=== PATIENT | male | born 1945 | race Caucasian/White ===

== ENCOUNTER → 2023-09-14 12:31 | Outpatient (REF) | payer MEDICARE, SELFPAY | LOC: MRI 3T 12:31 | PROVIDERS: ATTENDING PHYSICIAN Psychiatry & Neurology Neurology; FAMILY PHYSICIAN Family Medicine | DX: G31.84 Mild cognitive impairment of uncertain or unknown etiology (principal); R42 Dizziness and giddiness | CPT/HCPCS: 70553; A9575 ==

== ENCOUNTER 2023-10-24 10:42 | Inpatient (IN) | payer MEDICARE, SELFPAY ==
[2023-10-19] VITALS (7 sets, daily range): BP systolic 147–184; BP diastolic 84–129; BMI 24.6
[2023-10-19 21:29] LABS: % Basophils 0.2 % (0-2); % Eosinophils 0.2 % (0-6); % Immature Granulocytes 0.4 % (0-0.5); % Monocytes 2.7 % (1.7-9.3); % Neutrophils 86.5 % (42.2-75.2); Absolute Lymphocytes 0.5 10^3/uL (1.2-3.4); Absolute Monocytes 0.1 10^3/uL (0.1-0.6); Absolute Neutrophils 4.1 10^3/uL (1.4-6.5); Hematocrit 37.2 % (39.0-52.0); Hemoglobin 13.4 g/dL (13.0-18.0); Mean Corpuscular Hgb 32.3 pg (27.0-31.0); Mean Corpuscular Volume 89.6 fL (80.0-94.0); Mean Platelet Volume 9.7 fL (7.4-10.4); Nucleated Red Blood Cells % 0 % (-); Platelet Count 192 10^3/uL (130-400); Red Blood Cell Count 4.15 10^6/uL (4.70-6.10); Red Cell Dist. Width 12.5 % (11.5-14.5); White Blood Cell Count 4.8 10^3/uL (4.8-10.8)
[2023-10-19 21:46] LABS: ALT (SGPT) 18 U/L (0-50); AST (SGOT) 23 U/L (17-59); Albumin 4.2 g/dl (3.5-5.0); Alkaline Phosphatase 72 U/L (38-126); Blood Urea Nitrogen 22 mg/dl (9-20); Calcium 9.1 mg/dl (8.4-10.2); Carbon Dioxide 27 mmol/L (22-30); Chloride 99 mmol/L (98-107); Estimated Creatinine Clearance 64 ml/min; Glucose 137 mg/dl (70-99); Potassium 4.1 mmol/L (3.5-5.1); Sodium 133 mmol/L (135-145); Total Bilirubin 0.8 mg/dl (0.2-1.3); Total Protein 6.8 g/dl (6.3-8.2); eGFR > 60.00
--- NOTE | 2023-10-19 21:48 | ED.GENMED ---
History of Present Illness
General
Chief Complaint: Gait Dysfunction
Source: patient
Time Seen by Provider: 10/19/23 21:38
Travel History
Have you had any contact with someone who has COVID-19?: No
Do you have any symptoms of coronavirus? Fever > 100 degrees, chills, cough, shortness of breath, sore throat, loss of taste or smell, muscle aches, or headache?: No
History of Present Illness
History of Present Illness:
This patient is a 77-year-old male who says he was perfectly well until about 2 PM today when he started to feel a gradual onset of loud ringing in his right ear. This gradually got worse and he laid down. The ringing went away but then he started
to develop what he describes as vertigo also described as 'spinning, associated with nausea and then vomiting. This is much worse if he opens his eyes or is upright. When he tries to go upright he says that he feels 'faint'. He denies recent
recent trauma or falls, headache, neck pain, recent infection, sore throat, rhinorrhea, fever, chills, numbness, tingling, focal weakness, blurry or double vision, trouble swallowing, or other complaints. Patient has a history of vertigo in the
past.
Past History
Past History
ED Past Medical History: HTN and Other (TIA, vertigo); Negative IDDM
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
Social History
Tobacco: Non-smoker
Alcohol: None
Drug: None
Personal: Other
Living: alone
Employment: Other
Family History
Family History: Negative Early CAD
Phy Exam
Physical Exam
Physical Exam:
GENERAL: Alert , in no apparent distress occasional retching noted, obviously very nauseous
EYE: Patient declines eye exam at this time because opening his eyes makes him retch
NECK: Supple, no significant adenopathy.
ENT: o/p clr, mm dry, TMs clear bilaterally
CARDIAC: Regular rate and rhythm .
LUNGS: Clear breath sounds bilaterally, no acute respiratory distress, no wheezes/rales/rhonchi
ABDOMEN: Soft, without focal tenderness, no r/g
NEUROLOGICAL: Alert and oriented, speech clear, moves all extremities equally
SKIN: Warm and dry, skin intact.
MUSCULOSKELETAL: No edema, well perfused.
PSYCH: Normal and appropriate interaction.
Course
Orders/Labs/Results
Orders:
Orders
10/19/23 21:22
CMP [Comprehensive Metabolic Panel] Urgent
Complete Blood Count/With Diff Urgent
10/19/23 21:47
Metoclopramide [Reglan] 10 mg IV NOW STA
10/19/23 21:51
ECG [Electrocardiogram (*1)] Stat
Reason for Study: Vertigo / Dizzy
CT Head W/o Iv Contrast Stat
Comment:
Reason For Exam: dizzy
EKG- Treatment ONCE
10/19/23 22:04
Troponin I Urgent
10/20/23 00:07
Lorazepam [Ativan] 1 mg IV NOW STA
10/20/23 02:36
Admit/Transfer Patient As Directed
Co-Sign Provider:
Level of Care: Observation services
Assign to:: Telemetry
Physician / Group: Pamela
Diagnosis: Vertigo
Reason for Telemetry: CVA/TIA
Date to Stop Telemetry: 10/23/23
Time to Stop Telemetry: 11:00
10/20/23 02:37
Code Status As Directed
Resuscitation Status: Full Code
10/20/23 04:50
0.9% Sodium Chloride 1000 ml [Nss] 1,000 ml IV 80 mls/hr
Acetaminophen [Tylenol] 650 mg PO Q4HPRN PRN
Diazepam [Valium] 5 mg PO TIDPRN PRN
Meclizine [Antivert] 12.5 mg PO Q8HPRN PRN
10/20/23 04:50
Activity As Directed
Activity Level: Ambulate
With Assistance
Bladder Scan As Directed
Follow Bladder Retention/Intermittent Cath Algorithm?: Yes
PRN if no void in __ hours: 6
Frequency: Per Retention Algorithm
If Bladder Scan Result >: 400
then:: Straight cath
EKG with chest pain [ECG as needed] As Directed
ECG as needed for:: Chest Pain
I/O [Intake/ Output] As Directed
Frequency: Per unit guidelines
Neurological Checks As Directed
Frequency: q4h
Orthostatic Vital Signs As Directed
Orthostatic VS Frequency: BID
Pneumatic Compression Sleeves As Directed
Type: Knee high
Straight Cath As Directed
Frequency: Per Retention Algorithm
Additional Instructions: straight cath as needed per acute urinary retention algorithm for 24 hrs
Additional Instructions: for bladder scan greater than 400 mL
Vital Signs As Directed
Frequency: Per unit guidelines
Oxygen Therapy [O2 Therapy] [RESP] Routine
Titrate/Wean O2 to maintain O2 sat greater than (%): 94
Ot Eval And Treat Routine
PT Consult [Pt Eval And Treat] Routine
Activity Level: Ambulate
With Assistance
DX Deep Vein Thrombosis Video Routine
10/20/23 05:00
Flush (0.9% Sodium Chloride) [Flush (Nss)] See Dose Instructions IV PER PROTOCOL
10/20/23 05:17
Diazepam [Valium] 5 mg PO TIDPRN PRN
10/20/23 05:37
Basic Metabolic Panel IN AM
Complete Blood Count/No Diff IN AM
10/20/23 06:00
EKG [Electrocardiogram (*1)] IN AM
Reason for Study: Chest Pain
Regular
At Your Request: Full Participation
Does patient need a safe tray?: No
10/20/23 08:00
Clopidogrel Bisulfate [Plavix] 75 mg PO DAILY
Finasteride [Proscar] 5 mg PO DAILY
Tamsulosin [Flomax] 0.4 mg PO DAILY
10/20/23 09:00
Ot Screening Request from [facility] Routine
Pt Screening Request from [facility] Routine
10/20/23 16:00
Diazepam [Valium] 5 mg PO TID
10/20/23 21:42
Meclizine [Antivert] 12.5 mg PO Q8HPRN
10/20/23 22:00
Atorvastatin [Lipitor] 40 mg PO HS
Quetiapine Fumarate [Seroquel] 12.5 mg PO HS
10/21/23 13:18
Diazepam [Valium] 5 mg PO TID PRN
10/21/23 19:44
Ondansetron Injectable [Zofran] 4 mg IV NOW STA
10/22/23 10:46
ENT CONSULT Routine
Consulting Provider: Caryl Saldivar
Was physician already notified: Yes
Reason for Consult: Vertigo
MRI Brain [MR Brain Without Contrast] Routine
Comment:
Reason For Exam: persistent nystagmus
Recent pill cam endoscopy?: No
10/22/23 11:00
Sertraline HCl [Zoloft] 25 mg PO DAILY
10/22/23 13:51
COVID-19 Antigen Urgent
Source: Nasal Swab
10/22/23 19:00
0.9% Sodium Chloride 500 ml [Nss] 500 ml IV 500 mls/hr
10/23/23
Telemetry Continue As Directed
Date to Stop Telemetry: 10/24/23
Time to Stop Telemetry: 11:00
DX DVT Prevention Inpt Video Routine
10/23/23 08:00
Prednisone [Deltasone] 20 mg PO DAILY
10/23/23 11:00
DC Protocol for Telemetry ONCE
10/24/23 11:00
DC Protocol for Telemetry ONCE
Abnormal Lab Results
10/19/23 10/20/23 10/22/23
21:22 05:37 17:41
RBC 4.15 L 10^6/uL 4.02 L 10^6/uL
(4.70-6.10) (4.70-6.10)
Hgb 12.8 L g/dL
(13.0-18.0)
Hct 37.2 L % 36.8 L %
(39.0-52.0) (39.0-52.0)
MCH 32.3 H pg 31.8 H pg
(27.0-31.0) (27.0-31.0)
Absolute Lymphs (auto) 0.5 L 10^3/uL
(1.2-3.4)
Neutrophils % 86.5 H %
(42.2-75.2)
Lymphocytes % 10.0 L %
(20.5-51.1)
Sodium 133 L mmol/L 134 L mmol/L
(135-145) (135-145)
BUN 22 H mg/dl
(9-20)
Glucose 137 H mg/dl 115 H mg/dl
(70-99) (70-99)
POC Glucose 126 H mg/dl
(70-99)
10/20/23 05:37
10/20/23 05:37
Vital Signs
Initial and Last Documented VS:
Initial Vital Signs
Temp Pulse Resp BP Pulse Ox
98.7 F 96 18 167/87 98
10/19/23 20:24 10/19/23 20:24 10/19/23 20:24 10/19/23 20:24 10/19/23 20:24
Last Documented Vital Signs
Temp Pulse Resp BP Pulse Ox
98 F 79 18 147/67 95
10/27/23 11:25 10/27/23 11:25 10/27/23 11:25 10/27/23 11:25 10/27/23 11:25
*Critical Care Note
Total Time (30-74mins, 75-104mins- exclusive of procedures): Not Applicable
Update Note
Update Note:
Patient presents to the Emergency Department with ___dizziness
Number and Complexity of Problems Addressed at the Encounter
� Chronic conditions affecting care:
� Acute Exacerbation and/or Progression of Chronic Illness:
� Differential Diagnosis includes: But not limited to central vertigo, peripheral vertigo such as BPPV, acoustic neuroma, etc.
Amount and/or Complexity of Data to be Reviewed and Analyzed
� I performed an independent evaluation of and my interpretation is:
EKG:read by me, nsr, no acute ischemia
CT:vision report nad, chronic small vessel ischemic dz.
Xrays:
Laboratory Studies:generally unremarkable
Other:
� Review of other/old records reveals: hx of prior cva and admission for such
� Clinical information was obtained by an independent historian:
� Prescriptions/Medications Considered but not given:
� Further testing considered but not performed:
Risk of Complications and/or Morbidity or Mortality of Patient Management
� Social determinants of health affecting care:
� Discussion with other providers (PCP, Hospitalists, Consultants, etc):
� Escalation of care including admission/observation vs risk of discharge considered: 204 am Multiple reassessments here, pt finally able ot open eyes, no nystagmus appreciated. Still very dizzy but improved. Not able to
stand/walk due to sxs. Given risk factors and consistent sxs, will keep overnight. TT to Dr Carvajal.
ED Attending Note
-
Portions of this chart may have been created with voice recognition software.� Occasional wrong word or��sound alike� substitutions may have occurred due to the inherent limitations of voice recognition software.
Discharge Plan
Departure
Patient Disposition: Admit
Date of Disposition: 10/20/23
Time of Disposition: 02:09
Admit to: Telemetry
Admit to doctor: pamela
Presentation/result/management discussed w/ accepting MD/DO: Hospitalist
Discharge Problem:
Vertigo
Interventions
Interventions:
*Risk Screen - Suicide Last Done: 10/19/23 20:24
*General Assessment Last Done: 10/19/23 20:24
*Neglect/Abuse Screening Last Done: 10/19/23 20:24
ED- Fall Risk Assessment Last Done: 10/19/23 21:27
*ED COVID-19 Vaccine History Last Done: 10/19/23 21:27
*Nursing Disposition Last Done: 10/20/23 04:25
ED- Neurological Assessment Last Done: 10/19/23 21:27
ED-Musculoskeletal Assessment Last Done: 10/19/23 21:27
ED Swallowing Screen Last Done: 10/19/23 21:29
Discharge Date and Time
Discharge Date/Time: 10/20/23 04:26
[2023-10-19] MEDS: REGLAN 10 MG IV (22:07)
[2023-10-19 22:34] LABS: Troponin I < 0.012 ng/ml
[2023-10-20] VITALS (17 sets, daily range): BP systolic 117–165; BP diastolic 64–97; PULSE 82–94; O2SAT 97; BMI 22.7
[2023-10-20] MEDS: ATIVAN 1 MG IV (00:37)
--- NOTE | 2023-10-20 02:40 | HPS.HSE ---
Family Physician
-
Family Physician: Rufus Brown
Chief Complaint
-
Dizziness
History of Present Illness
Patient is a 77y M with PMH significant for anxiety, BPH and mild dementia who presents to ED complaining of dizziness. Patient states that he has been 'dealing with vertigo for the past 18 months'. Today he had a ringing in his ears (both) and
then developed dizziness / room spinning / nausea and vomiting. He presented to the ED for further evaluation. Patient received Reglan and Ativan in the ED with mild improvement in his symptoms. Despite his recent issues with vertigo, he feels
that today's symptoms are somewhat different.
He denies any recent illness, falls, trauma, head injury, etc.
Medical History
Past Medical History
Past Medical History: Reports Other
Additional Past Medical History:
BPPV / Vertigo
Hypertension
Anxiety / Depression
Mild Cognitive Impairment
BPH
Migraine Headaches
? History of TIA / BRAOs
Past Surgical History: Reports Other
Additional Past Surgical History:
Knee Arthroscopy
Cleft Palate Repair
Social History
Tobacco: Non-smoker
Alcohol: None
Drug: None
Family History
Family History: Not pertinent
Allergies / Home Medications
Allergies reflects when Allergies were last updated in [facility].
Home Medications with original date entered in [facility]
Allergy/Medication List:
Allergies
Allergy/AdvReac Type Severity Reaction Status Date / Time
No Known Allergies Allergy Verified 10/19/23 20:27
Home Medications
ascorbic acid (vitamin C) 500 mg tablet (Vitamin C) 500 mg PO DAILY 10/12/13
bethanechol chloride 5 mg tablet 5 mg PO BID 10/12/13
clonazepam 0.5 mg tablet 0.25 mg PO HS 10/12/13
clopidogrel 75 mg tablet 75 mg PO DAILY 10/12/13
finasteride 5 mg tablet 5 mg PO DAILY 10/12/13
multivitamin (One Daily Multivitamin tablet) 1 ea PO DAILY 10/12/13
tamsulosin 0.4 mg capsule 0.4 mg PO DAILY 10/12/13
aspirin 325 mg tablet 325 mg PO DAILY 04/28/19
atorvastatin 40 mg tablet (Lipitor) 40 mg PO HS #30 tabs 04/28/19
quetiapine 25 mg tablet 12.5 mg (1/2 x 25 mg) PO HS 04/28/19
ondansetron 4 mg disintegrating tablet 4 mg PO TIDPRN PRN nausea/vomiting #20 tabs 08/18/22
Review of Systems
-
History Source: Patient
A 12 point ROS was completed and negative except as noted: Yes
Constitutional: Reports Fatigue; Denies Fever or Chills
EENT: Denies Sore Throat
Respiratory: Denies Cough or Trouble Breathing
Cardiac: Denies Chest Pain or Palpitations
Abdomen/GI: Reports Nausea and Vomiting; Denies Abdominal Pain, Diarrhea or Constipated
: Denies Dysuria or Frequency
Musculoskeletal: Denies Joint Pain or Edema
Neurological: Reports Dizzy and Headache; Denies Weakness or Numbness
Psych: Denies Depression or Anxiety
Physical Exam
Vital Signs
Vital Signs
Temp Pulse Resp BP Pulse Ox
98.7 F 88 16 117/73 93
10/19/23 20:24 10/20/23 01:30 10/20/23 01:30 10/20/23 01:30 10/20/23 01:30
Physical Exam
General: Other (77y M in mild distress due to dizziness / nausea.)
HEENT: Moist mucous membranes, PERRLA and Other (Pos horizontal nystagmus on exam.)
Respiratory: Clear; No Wheezes, Rales or Rhonchi
Cardiac: S1/S2, Regular Rhythm and Murmur (II/ JUSTIN)
GI: Soft, Non Tender, Non Distended and Normal Bowel Sounds
Musculoskeletal: No Clubbing, No Cyanosis and No Edema
Neuro: AO x 3 and Nonfocal/grossly intact
Laboratory Results
-
10/19/23 21:22
10/19/23 21:22
Laboratory Results
Total Bilirubin 0.8 mg/dl (0.2-1.3) 10/19/23 21:22
AST 23 U/L (17-59) 10/19/23 21:22
ALT 18 U/L (0-50) 10/19/23 21:22
Alkaline Phosphatase 72 U/L (38-126) 10/19/23 21:22
Troponin I < 0.012 ng/ml 10/19/23 22:04
Impression/Plan
-
A/P: Patient is a 77y M with PMH significant for migraines, HTN and vertigo who presents to ED complaining of dizziness and nausea.
Vertigo
- Observe overnight for further evaluation and treatment.
- Positive nystagmus on exam consistent with vertigo diagnosis.
- PT / OT evaluations in the AM.
- Will use vertigo medications (meclizine +/- Valium) as needed for any new or worsening symptoms in the interim.
- Follow for clinical improvement.
- CT head was unremarkable in the ED and note that patient had an MRI of the brain done last month - also unremarkable.
- No need for further imaging at this time.
Anxiety / Depression
- Stable. Continue current med regimen.
BPH
- Stable. Continue Flomax / Proscar.
- Bladder scan protocol.
Questionable TIA History
- Patient reports prior history of 'eye TIAs' in the past.
- Outpatient records indicate no evidence / report of this in his Ophtho documentation.
- Monitor for any new / focal findings.
- Recent unremarkable ROAD [employer] imaging has been completed as noted above.
DVT Prophylaxis: SCDs
Code Status: Full
--- NOTE | 2023-10-20 05:30 | PTCARENOTE ---
Patient admitted to room 405-1, pulled over from the stretcher to the bed. Patient oriented x3. His NIH is a '0'. Complaining of dizziness, medicated with antivert as ordered prn dizziness. Patient states he has not voided in 12 hours , he
attempted to go in the urinal twice. He was bladder scanned for 411cc, the straight cathed for 300cc. Patient instructed to ring for assistance prior to geting out of bed, he verbalized understanding. Call pelayo in reach.
[2023-10-20] MEDS: NSS 1000 IV ×2 (05:35→18:42)
[2023-10-20] MEDS: ANTIVERT 12.5 MG PO ×2 (05:37→13:42)
[2023-10-20 06:52] LABS: Hematocrit 36.8 % (39.0-52.0); Hemoglobin 12.8 g/dL (13.0-18.0); Mean Corp Hgb Conc. 34.8 g/dL (33.0-37.0); Mean Corpuscular Hgb 31.8 pg (27.0-31.0); Mean Corpuscular Volume 91.5 fL (80.0-94.0); Mean Platelet Volume 9.8 fL (7.4-10.4); Platelet Count 199 10^3/uL (130-400); Red Blood Cell Count 4.02 10^6/uL (4.70-6.10); Red Cell Dist. Width 12.4 % (11.5-14.5); White Blood Cell Count 6.4 10^3/uL (4.8-10.8)
[2023-10-20 07:21] LABS: Blood Urea Nitrogen 19 mg/dl (9-20); Calcium 8.9 mg/dl (8.4-10.2); Carbon Dioxide 28 mmol/L (22-30); Chloride 99 mmol/L (98-107); Estimated Creatinine Clearance 73 ml/min; Glucose 115 mg/dl (70-99); Sodium 134 mmol/L (135-145); eGFR > 60.00
[2023-10-20] MEDS: FLOMAX 0.400000000000000022 MG PO (08:29)
[2023-10-20] MEDS: PLAVIX 75 MG PO (08:29)
[2023-10-20] MEDS: PROSCAR 5 MG PO (08:29)
[2023-10-20] MEDS: VALIUM 5 MG PO ×3 (08:37→20:58)
--- NOTE | 2023-10-20 15:00 | W.PN.UPDATE ---
Update Note
Progress Note Update
Seen by Dr. Carvajal this morning. Patient with chronic vertigo presented with worsening of vertigo symptoms. He was noted to be nonfocal neurologically and a CT head was negative. He had recent MRI of the brain apparently for the same reason and
apparently was negative. Admit as an observation for symptomatic treatment. Patient still remains very symptomatic. He has to keep his eyes closed. Minimal movement of his head or body precipitates vertigo symptoms and nausea.
CW symptomatic treatments. I will keep Antivert and Valium scheduled due to his severe nature of symptoms. He was advised that it would bring on sleepiness and advised to take help with ambulation or transfers out of bed.
[2023-10-20] MEDS: SEROQUEL 12.5 MG PO (20:56)
[2023-10-20] MEDS: LIPITOR 40 MG PO (20:57)
[2023-10-21] VITALS (8 sets, daily range): BP systolic 126–159; BP diastolic 56–96; PULSE 66–106
[2023-10-21] MEDS: NSS 1000 IV (05:01)
--- NOTE | 2023-10-21 06:23 | PTCARENOTE ---
Patient bladder scanned for >400, SCIENTIFIC [employer]EARCH ASSOCIATE aware that this would be 4th straight cath. New order obtained for placement of lobo catheter, patient agreeable with lobo placement.
[2023-10-21] MEDS: FLOMAX 0.400000000000000022 MG PO (08:46)
[2023-10-21] MEDS: PLAVIX 75 MG PO (08:46)
[2023-10-21] MEDS: PROSCAR 5 MG PO (08:46)
[2023-10-21] MEDS: VALIUM 5 MG PO (08:46)
--- NOTE | 2023-10-21 13:19 | W.PN.HOSP.TC ---
Today's Communication/Plan
-
Continue with Antivert. Valium as needed.
Continue PT treatments
DC planning
Assessment / Plan
Assessment / Plan
A/P: Patient is a 77y M with PMH significant for migraines, HTN and vertigo who presents to ED complaining of vertigo and nausea
Vertigo
- Positive nystagmus on exam on adx consistent with vertigo diagnosis.
- PT/OT evaluations ongoing
- improved vertigo with jordyn antivert and Valium medications . Will make Valium as needed now and continue with antivert scheduled.
- CT head was unremarkable in the ED and note that patient had an MRI of the brain done last month - also unremarkable.
- No need for further imaging at this time.
Anxiety / Depression
- Stable. Continue current med regimen.
BPH
- Stable. Continue Flomax / Proscar.
- Bladder scan protocol.
DVT Prophylaxis: SCDs
Code Status: Full
Anticipated Discharge: Within 24 hours
Subjective/Interval History
-
Date of Service: October 21, 2023
Patient is feeling improved with his vertigo. In fact was able to walk better with the physical therapy yesterday.
Tolerating diet.
Objective Data
-
Vital Signs:
Vital Signs
Temp Pulse Resp BP Pulse Ox
98 F 79 17 143/56 98
10/21/23 11:55 10/21/23 11:55 10/21/23 11:55 10/21/23 11:55 10/21/23 11:55
I&O
10/20/23 10/21/23 10/22/23
06:59 06:59 06:59
Intake Total 1010 / 1010
Output Total 300 / 300 1250 / 1250
Balance -300 / -300 -240 / -240
Review of Systems
-
Respiratory: Denies Trouble Breathing
Cardiac: Denies Chest Pain
Neuro: Denies Headache
Physical Exam
-
General: No Apparent Distress
HEENT: Moist Mucous Membranes
Respiratory: Clear to Auscultation
Cardiac: Regular Rhythm and S1/S2
GI: Soft
Neuro: AO x 3, No Motor Deficits and Other (nystagmus in rt eye looking to left ;EOMI ); Negative Tremors
--- NOTE | 2023-10-21 15:37 | CM ---
Patient with Dx vertigo. Room air. PT & OT recommend outpatient PT & OT.
Met with patient who resides alone in a 2 story house.
The patient has been independent in ADLs and ambulation.
He was active and drives.
The patient has no DME, prior VN or SNF.
PCP - Rufus Brown
Ph[facility]acy - [facility]
The patient will need a script for outpatient PT & OT.
Plan home with script for outpatient PT/OT.
[2023-10-21] MEDS: TYLENOL 650 MG PO (15:57)
[2023-10-21] MEDS: ZOFRAN 4 MG IV (19:55)
[2023-10-21] MEDS: SEROQUEL 12.5 MG PO (21:19)
[2023-10-21] MEDS: LIPITOR 40 MG PO (21:20)
[2023-10-21] MEDS: ANTIVERT 12.5 MG PO (21:22)
[2023-10-22] MEDS: TYLENOL 650 MG PO ×2 (02:32→09:11)
[2023-10-22 03:28] VITALS: BP 145/83
[2023-10-22 07:55] VITALS: BP 135/73; BP 135/83; PULSE 74; PULSE 76
[2023-10-22] MEDS: FLOMAX 0.400000000000000022 MG PO (09:11)
[2023-10-22] MEDS: PLAVIX 75 MG PO (09:11)
[2023-10-22] MEDS: ANTIVERT 12.5 MG PO (09:11)
[2023-10-22] MEDS: PROSCAR 5 MG PO (09:11)
--- NOTE | 2023-10-22 09:45 | PTCARENOTE ---
pt aoox3. states dizziness is the same as yesterday. Antivert given as ordered states back of head headache. tylenol given as ordered. pt states he feels better if only looking out one eye.
--- NOTE | 2023-10-22 10:50 | W.PN.HOSP.TC ---
Today's Communication/Plan
-
CW PT tx
MRI brain
ENT eval
Assessment / Plan
Assessment / Plan
A/P: Patient is a 77y M with PMH significant for migraines, HTN and vertigo who presents to ED complaining of vertigo and nausea
Acute Vertigo preceded by acute onset of tinnitus in left ear
Hx of intermittent Vertigo
- Positive nystagmus on exam while looking to left .
- Remains symptomatic needing to close his eyes to help with vertigo.
- No motor deficit , no tremor
- Improved GI symptoms and resolved tinnitus
- CT head was unremarkable in the ED and note that patient had an MRI of the brain done( for CVA eval) last month - also unremarkable.
- In view of persistent symptomsand hx of CVA in past will obtain MRI brain
- ENT to eval as well
Anxiety / Depression
- Stable. Continue current med regimen.
BPH
- Stable. Continue Flomax / Proscar.
- Bladder scan protocol.
Hx of CVA
cw Plavix
[facility] chart reviewed ;last neuro OP visit noted
Total time spent on today's encounter was 52 minutes which included time spent in counseling the patient regarding diagnosis and treatment plan as listed above, goals of care, and symptom management. Case was discussed with nursing staff,
specialists, . All labs and imaging personally reviewed by me. Remainder the time spent in detailed review of previous records, lab data, imaging, and other medical provider documentation.
DVT Prophylaxis: SCDs
Code Status: Full
Anticipated Discharge: 24 - 48 hours
Subjective/Interval History
-
Date of Service: October 22, 2023
Persistent vertigo when he opens his eyes. He is better with closing 1 eye. Still symptomatic when he tries to get up. No diplopia.
The left ear tinnitus has subsided.
Nausea and vomiting is subsided.
No headache.
Objective Data
-
Vital Signs:
Vital Signs
Temp Pulse Resp BP Pulse Ox
98.2 F 74 18 135/83 94
10/22/23 07:55 10/22/23 07:55 10/22/23 07:55 10/22/23 07:55 10/22/23 07:55
I&O
10/21/23 10/22/23 10/23/23
06:59 06:59 06:59
Intake Total 1010 / 1010 600 / 600
Output Total 1250 / 1250 2675 / 2675
Balance -240 / -240 -2074 / -2074
Review of Systems
-
Constitutional: Denies Fever
EENT: Denies Sore Throat
Respiratory: Denies Trouble Breathing
Cardiac: Denies Chest Pain
Abdomen/GI: Denies Abdominal Pain
Neuro: Denies Headache or Weakness
Physical Exam
-
General: No Apparent Distress
HEENT: Moist Mucous Membranes
Respiratory: Clear to Auscultation
Cardiac: Regular Rhythm and S1/S2
Neuro: AO x 3, No Motor Deficits and Other (nystagmus looking to left ); Negative Tremors, Slurred Speech or Facial Droop
Psych: Calm
[2023-10-22] MEDS: ZOLOFT 25 MG PO (11:14)
[2023-10-22 11:55] VITALS: BP 140/79
[2023-10-22 14:13] LABS: COVID-19 Antigen Negative (Negative)
[2023-10-22 15:55] VITALS: BP 160/90
--- NOTE | 2023-10-22 17:29 | CM ---
Spoke with patient he eye sight is not good.
Pt requested Home [facility]N [facility] at or.
[facility] liaison notified of Referral .
PLAN Home with [facility] if accepted
[2023-10-22 17:46] LABS: Glucose - Point of Care 126 mg/dl (70-99)
--- NOTE | 2023-10-22 18:11 | W.PN.ENT ---
Today's Communication
-
Start prednisone taper, f/u w ENT after d/c, continue vestibular PT. Full c/s to follow.
Impression / Plan
-
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 I recommend starting steroids and limiting the meclizine and benzodiazepine d/t the memory issues. Pls
have him continue vestibular PT. May need neuro follow up for the memory loss. He will need to f/u in our office once discharged.
Subjective Data
-
The patient was seen and examined. He is disoriented and cannot recall when or why he came to the hospital. He does not know the day/date. He knows the other doctors in my practice. He reports that he is no longer dizzy and his ringing has resolved.
I denies any change in hearing. He has been followed for a long time for vertigo diagnosed as BPPV.
Objective Data
-
Vital Signs
Temp Pulse Resp BP Pulse Ox
98.3 F 76 16 160/90 96
10/22/23 15:55 10/22/23 15:55 10/22/23 15:55 10/22/23 15:55 10/22/23 15:55
Intake & Output
10/21/23 10/22/23 10/23/23
06:59 06:59 06:59
Intake:
Oral fluids 120 / 120 600 / 600
IV fluids (Total) 890 / 890
Output:
Urine, [place] 2675 / 2675
Urine, Voided 475 / 475
Straight cath output 775 / 775
Lab Results
10/20/23 05:37
10/20/23 05:37
Calcium 8.9 mg/dl (8.4-10.2) 10/20/23 05:37
Total Bilirubin 0.8 mg/dl (0.2-1.3) 10/19/23 21:22
AST 23 U/L (17-59) 10/19/23 21:22
ALT 18 U/L (0-50) 10/19/23 21:22
Alkaline Phosphatase 72 U/L (38-126) 10/19/23 21:22
Physical Exam
-
NAD, Alert but only oriented to person
HEENT: B/L EACs are clear, no effusions or erythema. Hearing grossly intact
Nasal and oral exams WNL
Eyes: Non-fatiguing nystagmus when looking left.
Data Reviewed
-
Radiology Results: Report Reviewed and Image Reviewed
--- NOTE | 2023-10-22 18:42 | RR ---
A Rapid Response was called on this patient, please see Rapid Response form.
--- NOTE | 2023-10-22 18:43 | PTCARENOTE ---
pt returned from mri and was placed on commode. pt rang call pelayo to when done and then found unresponsive diaphoretic sinus tach on monitor. rapid response called. pt woke up shortly after and placed in bed. DR. Barber up to see pt. ivf
ordered. pt now with short term memory loss can not remember why he is here but remembers staff.
--- NOTE | 2023-10-22 19:18 | W.PN.UPDATE ---
Update Note
Progress Note Update
Called to see patient for syncopal event on the bedside commode
Patient was trying to have a bowel movement and his nurse found him laid back on the commode unresponsive, diaphoretic with sinus tachycardia on the monitor of heart rate in the 120s
He was placed back in bed but patient is having short-term memory issues about why he was here and what was happening which have been slowly returning to him
I suspect this is due to vasovagal response with poor perfusion as blood pressure was systolic 114 but he normally has been running here 160s systolic--he was given 500 mL of normal saline bolus
GENERAL: well developed, well nourished, male in no apparent distress
HEENT: NC/AT no carotid bruits noted
HEART: regular rate and rhythm, +S1, +S2--tachycardic
LUNGS : clear to auscultation bilaterally
ABDOM: soft, nontender, nondistended, + bowel sounds
EXT: no cyanosis, clubbing, or edema
NEUROLOGIC: grossly intact
Patient slowly improving--finish normal saline bolus--follow cognition through the evening
[2023-10-22] MEDS: NSS 500 IV (19:22)
[2023-10-22 19:55] VITALS: BP 147/85
[2023-10-22] MEDS: SEROQUEL 12.5 MG PO (21:29)
[2023-10-22] MEDS: LIPITOR 40 MG PO (21:29)
[2023-10-22 23:56] VITALS: BP 152/93
[2023-10-23] VITALS (7 sets, daily range): BP systolic 136–184; BP diastolic 79–108; PULSE 98
[2023-10-23] MEDS: FLOMAX 0.400000000000000022 MG PO (08:19)
[2023-10-23] MEDS: PROSCAR 5 MG PO (08:19)
[2023-10-23] MEDS: PLAVIX 75 MG PO (08:19)
[2023-10-23] MEDS: ZOLOFT 25 MG PO (08:19)
[2023-10-23] MEDS: DELTASONE 40 MG PO (08:19)
--- NOTE | 2023-10-23 09:39 | PTCARENOTE ---
pt wakes to name. orientedx3. states no pain or sob. states dizziness feels a little better but is worried that he still does not feel well. is anxious to go home. explained that he is still unsteady on his feet and will work with PT to improve
that. reviewed current medications and treatments.
--- NOTE | 2023-10-23 10:33 | W.PN.HOSP.TC ---
Today's Communication/Plan
-
DC planning
Assessment / Plan
Assessment / Plan
A/P: Patient is a 77y M with PMH significant for migraines, HTN and vertigo who presents to ED complaining of vertigo and nausea
Acute Vertigo preceded by acute onset of tinnitus in left ear
Hx of intermittent Vertigo/BPPV
ENT suspects
Vestibular neuronitis than BPPV.
- Positive nystagmus on exam while looking to left .
- Remains symptomatic needing to close his eyes to help with vertigo.
- No motor deficit , no tremor
- Improved GI symptoms and resolved tinnitus
- CT head was unremarkable in the ED and note that patient had an MRI of the brain done( for CVA eval) last month - also unremarkable.
- MRI of the brain is negative for an acute infarct.
Patient initiated on steroids now. Continue with PT OT and vestibular therapist.
Patient could be discharged home but he lives alone and is interested to go to rehab.
Anxiety / Depression
- Stable. Continue current med regimen.
BPH
- Stable. Continue Flomax / Proscar.
- Bladder scan protocol.
Hx of CVA
cw Plavix
DVT Prophylaxis: SCDs
Code Status: Full
Anticipated Discharge: Today
Subjective/Interval History
-
Date of Service: October 23, 2023
Had a syncopal episode during defecation yesterday. Resolved;none further..
Slowly improving vertigo. Still symptomatic. No nausea vomiting. Tolerating diet.
Objective Data
-
Vital Signs:
Vital Signs
Temp Pulse Resp BP Pulse Ox
98.1 F 67 18 149/79 97
10/23/23 08:25 10/23/23 08:25 10/23/23 08:25 10/23/23 08:25 10/23/23 08:25
I&O
04/03/0810/23/23 10/24/23
06:59 06:59 06:59
Intake Total 600 / 600 720 / 720
Output Total 2675 / 2675 1225 / 1225
Balance -2075 / -2075 -505 / -505
Review of Systems
-
Constitutional: Denies Fever
Respiratory: Denies Trouble Breathing
Cardiac: Denies Chest Pain
Neuro: Denies Headache
Physical Exam
-
General: No Apparent Distress
HEENT: Moist Mucous Membranes
Respiratory: Clear to Auscultation
Cardiac: Regular Rhythm
GI: Soft
Neuro: AO x 3, No Motor Deficits and Other (Slight nystagmus looking to the left but much improved compared to yesterday's exam.); Negative Tremors, Slurred Speech or Facial Droop
Data Reviewed
-
MRI: Report Reviewed by me (MRI of the brain)
Labs: Labs Reviewed by me
--- NOTE | 2023-10-23 10:39 | W.PN.HOSP.TC ---
Today's Communication/Plan
-
DC planning
Assessment / Plan
Assessment / Plan
A/P: Patient is a 77y M with PMH significant for migraines, HTN and vertigo who presents to ED complaining of vertigo and nausea
Acute Vertigo preceded by acute onset of tinnitus in left ear
Hx of intermittent Vertigo/BPPV
ENT suspects
Vestibular neuronitis than BPPV.
- Positive nystagmus on exam while looking to left .
- Remains symptomatic needing to close his eyes to help with vertigo.
- No motor deficit , no tremor
- Improved GI symptoms and resolved tinnitus
- CT head was unremarkable in the ED and note that patient had an MRI of the brain done( for CVA eval) last month - also unremarkable.
- MRI of the brain is negative for an acute infarct.
Patient initiated on steroids now. Continue with PT OT and vestibular therapist.
Patient could be discharged home but he lives alone and is interested to go to rehab.
Anxiety / Depression
- Stable. Continue current med regimen.
BPH
- Stable. Continue Flomax / Proscar.
- Bladder scan protocol.
Hx of CVA
cw Plavix
DVT Prophylaxis: SCDs
Code Status: Full
Anticipated Discharge: Today
Subjective/Interval History
-
Date of Service: October 23, 2023
Objective Data
-
Vital Signs:
Vital Signs
Temp Pulse Resp BP Pulse Ox
98.1 F 67 18 149/79 97
10/23/23 08:25 10/23/23 08:25 10/23/23 08:25 10/23/23 08:25 10/23/23 08:25
I&O
10/22/23 10/23/23 10/24/23
06:59 06:59 06:59
Intake Total 600 / 600 720 / 720
Output Total 2675 / 2675 1225 / 1225
Balance -2074 / -2074 - / -
--- NOTE | 2023-10-23 12:04 | VNURNOTE ---
Home Health Liaison spoke with patient at 1200 to discuss [facility] nurse/therapy, visits, schedule and homebound status. Patient is agreeable and understands that visits at home will be 2-3 x per week to assess and teach medical management and catheter
care if needed.
Patient is aware that [facility] will contact him for start of care in 1-2 days after discharge from .
[facility] referral completed in [facility].
--- NOTE | 2023-10-23 16:24 | CM ---
Pt said his brother will Maury will drive him home.
Spoke with patient he eye sight is not good.
Pt requested Home [facility] at [place].
Sherri [facility] liaison notified of Referral .
PLAN Home with [facility]
[2023-10-23] MEDS: LIPITOR 40 MG PO (21:01)
[2023-10-23] MEDS: SEROQUEL 12.5 MG PO (21:01)
[2023-10-24] VITALS (7 sets, daily range): BP systolic 118–172; BP diastolic 83–93; PULSE 101; O2SAT 96
[2023-10-24] MEDS: FLOMAX 0.400000000000000022 MG PO (09:21)
[2023-10-24] MEDS: DELTASONE 40 MG PO (09:21)
[2023-10-24] MEDS: PLAVIX 75 MG PO (09:21)
[2023-10-24] MEDS: PROSCAR 5 MG PO (09:21)
[2023-10-24] MEDS: ZOLOFT 25 MG PO (09:21)
--- NOTE | 2023-10-24 15:16 | CM ---
Addendum entered by Cyndi Erwin 10/24/23 15:40:
Per notes, patient has decreased endurance related to ADLs; he has no assistance with self care; and would probably have difficulty managing at home alone; recommends rehab
As noted below, CM will follow up with patient and brother tomorrow
Original Note:
Met with patient and his brother at the bedside to discuss discharge plan (SNF vs Home PT); and his ability to manage on his own.
Patient's brother, is a retired physician. Per PT patient needed to use RW with ambulation which he does not use at baseline.
OT evaluation requested
Patient lives alone in a 2 story home; bedroom and bath on the 2nd floor
CM explained referral process and provided list of longterm facilities to identify preferences
Patient wants time to think about it; CM will follow up tomorrow
--- NOTE | 2023-10-24 15:27 | W.PN.HOSP.TC ---
Today's Communication/Plan
-
Discussed with patient and patient's brother,
Assessment / Plan
Assessment / Plan
Physical exam:
General: Awake, alert and oriented x3, not in distress and holds appropriate conversation.
HEENT: No active discharge, ecchymosis or bruising, moist lips, tongue and mucous membrane.
Eyes: Holds right eye when he talks because of blurry vision, no discharge or red conjunctiva, no nystagmus, pupils are reactive and equal
Neck:Supple, no JVD no bruit no goiter.
Respiratory: Normal AP contour and diameter, normal chest wall movement, normal respiratory effort, no respiratory distress,
Lungs: Good air entry bilaterally, no wheezing or rhonchi, no rales or crackles
Heart: S1, S2 regular, normal rate, no added sound.
Gastrointestinal: Positive bowel sounds, soft, nontender, no guarding or rigidity or organomegaly
Musculoskeletal: , no chest wall abnormality or tenderness. All joints and extremities have good range of motion, no muscle tenderness or any joint swelling or tenderness.
Extremities: No pitting edema, good peripheral pulses, good range of motion
Skin: Warm and dry, no ulceration, normal color.
Neurological: Awake, alert and oriented x3, cranial nerve II-XII grossly intact, speech clear and comprehensive, good muscle tone, normal sensory and motor function
A/P: Patient is a 77y M with PMH significant for migraines, HTN and vertigo who presents to ED complaining of vertigo and nausea
Acute Vertigo preceded by acute onset of tinnitus in left ear
Hx of intermittent Vertigo/BPPV
ENT suspects
Vestibular neuronitis than BPPV.
- Positive nystagmus on exam while looking to left .
-Still symptomatic needing to close his eyes to help with vertigo. MRI was negative for acute finding
- No motor deficit , no tremor
- Improved GI symptoms and resolved tinnitus
- CT head was unremarkable in the ED
-Neurology input
Close monitoring
PT recommended nursing home
OT eval
Not safe for discharge home as she lives alone
Patient initiated on steroids now.
Anxiety / Depression
- Stable. Continue current med regimen.
BPH
- Stable. Continue Flomax / Proscar.
Patton catheter placed and since October 17, will DC and see how his he doing
Get a UA
There is any issue not urinating then we will replace with Patton and and get a urology consult
Hx of CVA
cw Plavix
DVT Prophylaxis: SCDs
Code Status: Full
Anticipated Discharge: 24 - 48 hours
Subjective/Interval History
-
Date of Service: October 24, 2023
Seen and examined, awake and alert, still symptomatic and feels disease specially when he moved toward left, her brother at bedside, denies any nausea or vomiting or fever or chills or any weakness or numbness in extremities.
Has Patton catheter placed and on fifth look like for urinary incontinence especially when he was getting up to urinate he was getting more dizzy, Patton catheter was placed and a safe
Is brought at the bedside
Objective Data
-
Vital Signs:
Vital Signs
Temp Pulse Resp BP Pulse Ox
97.4 F 74 16 155/83 95
10/24/23 12:00 10/24/23 12:00 10/24/23 12:00 10/24/23 12:00 10/24/23 13:32
I&O
10/23/23 10/24/23 10/25/23
07:59 07:59 07:59
Intake Total 720 / 720 720 / 720
Output Total 1225 / 1225 350 / 350
Balance -505 / -505 370 / 370
Review of Systems
-
All other systems: Reviewed and negative
[2023-10-24] MEDS: SEROQUEL 12.5 MG PO (20:47)
[2023-10-24] MEDS: LIPITOR 40 MG PO (20:48)
[2023-10-25 07:55] VITALS: BP 141/84
[2023-10-25] MEDS: DELTASONE 30 MG PO (08:32)
[2023-10-25] MEDS: FLOMAX 0.400000000000000022 MG PO (08:33)
[2023-10-25] MEDS: ZOLOFT 25 MG PO (08:33)
[2023-10-25] MEDS: PROSCAR 5 MG PO (08:33)
[2023-10-25] MEDS: PLAVIX 75 MG PO (08:33)
--- NOTE | 2023-10-25 10:00 | CM ---
Addendum entered by Cyndi Erwin 10/25/23 13:05:
Brother can be here to transport to facility on Sunday @ 1300
Addendum entered by Cyndi Erwin 10/25/23 11:50:
[facility] called; they can accept patient on Sunday; they requested Covid-19 testing morning of discharge
Attending notified and agreeable with plan
Addendum entered by Cyndi Erwin 10/25/23 11:21:
Met with patient and his brother and [id number] at the bedside
Explained that SNF referral to [facility] was accepted; patient is agreeable to go to this facility
Brother will transport via private car to facility when discharged
Notified facility and waiting to hear if bed is available today or tomorrow
Plan: discharge to [facility] when stable for discharge
Original Note:
Patient called this morning; he is agreeable with discharge plan to SNF; referrals sent to [facility] [place], [place]
--- NOTE | 2023-10-25 13:10 | PN.CDI ---
CDI
- -
CDI:
Physician Documentation Request
Admit Date: 10/24/23 10:42
Dear Doctor Anahy,
Clinical Indicators:
Patient admitted with vertigo.
10/20 (05:30) RN note, 'Patient bladder scanned for >400, [employer] aware that this would be 4th straight cath.'
10/23 PN, 'BPH...Patton catheter placed and since October 17...'
Based on the above, could you clarify in the progress notes, the appropriate diagnosis, if significant, that supports the above abnormalities and additional evaluation, monitoring and/or treatment rendered:
BPH with urinary retention
BPH only
Other, please specify
Use of terms such as suspected, likely, concern for, or probable (associated with a specific diagnosis that is being evaluated, monitored, or treated as if it exists) are acceptable and can be coded in the inpatient setting, when documented at the
time of discharge.
Thank you,
TERESSA Carroll RN
CDI Specialist
available via tiger text
Please use your independent medical judgment in providing your response.
--- NOTE | 2023-10-25 13:17 | PN.CDI ---
CDI
- -
CDI:
Physician Documentation Request
Admit Date: 10/24/23 10:42
Dear Doctor Anahy,
Clinical Indicators:
Patient admitted with vertigo.
NSS 500 ml bolus x 1 given.
Sodium levels:
10/19/23 10/20/23
21:22 05:37
Sodium 133 L 134 L
Based on the above, could you clarify in the progress notes, the appropriate diagnosis, if significant, that supports the above abnormalities and additional evaluation, monitoring and/or treatment rendered:
Hyponatremia
Abnormal lab values, clinically insignificant
Other
Use of terms such as suspected, likely, concern for, or probable (associated with a specific diagnosis that is being evaluated, monitored, or treated as if it exists) are acceptable and can be coded in the inpatient setting, when documented at the
time of discharge.
Thank you,
TERESSA Carroll RN
CDI Specialist
available via tiger text
Please use your independent medical judgment in providing your response.
--- NOTE | 2023-10-25 14:28 | W.PN.HOSP.TC ---
Addendum entered and electronically signed by Tiffanie Higginbotham MD 10/25/23 15:21:
Other impression: Hyponatremia, present on admission possible secondary to decreased intake
2. BPH with urinary retention, Patton catheter removed, will monitor for retention again.On finasteride and Flomax
Original Note:
Today's Communication/Plan
-
All discussed with the patient
Discussed with his brother who is a physician
Discussed with the nurse and shelter case manager
Assessment / Plan
Assessment / Plan
Physical exam:
General: Awake, alert and oriented x3, not in distress and holds appropriate conversation.
HEENT: No active discharge, ecchymosis or bruising, moist lips, tongue and mucous membrane.
Eyes: Holds right eye when he talks because of blurry vision, no discharge or red conjunctiva, no nystagmus, pupils are reactive and equal
Neck:Supple, no JVD no bruit no goiter.
Respiratory: Normal AP contour and diameter, normal chest wall movement, normal respiratory effort, no respiratory distress,
Lungs: Good air entry bilaterally, no wheezing or rhonchi, no rales or crackles
Heart: S1, S2 regular, normal rate, no added sound.
Gastrointestinal: Positive bowel sounds, soft, nontender, no guarding or rigidity or organomegaly
Musculoskeletal: , no chest wall abnormality or tenderness. All joints and extremities have good range of motion, no muscle tenderness or any joint swelling or tenderness.
Extremities: No pitting edema, good peripheral pulses, good range of motion
Neurological:, Occasionally holds right eye to avoid getting dizzy, but overall better awake, alert and oriented x3, cranial nerve II-XII grossly intact, speech clear and comprehensive, good muscle tone, normal sensory and motor function
A/P: Patient is a 77y M with PMH significant for migraines, HTN and vertigo who presents to ED complaining of vertigo and nausea
Acute Vertigo preceded by acute onset of tinnitus in left ear
Hx of intermittent Vertigo/BPPV
Vestibular neuronitis than BPPV.
- Positive nystagmus on exam while looking to left .
-Still symptomatic needing to close his eyes to help with vertigo. MRI was negative for acute finding
- No motor deficit , no tremor
- Improved GI symptoms and resolved tinnitus
- CT head was unremarkable in the ED
-Neurology input
Close monitoring
PT recommended residential
OT eval
Not safe for discharge home as she lives alone, plan for placement accepted in a halfway but because of the Medicare we will cannot leave until Sunday.
Patient initiated on steroids now.
Anxiety / Depression
- Stable. Continue current med regimen.
BPH
- Stable. Continue Flomax / Proscar.
Patton catheter placed and since October 17, will DC and see how his he doing
Get a UA
There is any issue not urinating then we will replace with Patton and and get a urology consult
Hx of CVA
cw Plavix
DVT Prophylaxis: SCDs
Code Status: Full
Anticipated Discharge: > 48 hours
Subjective/Interval History
-
Date of Service: October 25, 2023
Seen and examined, awake and alert, his brother at the bedside, overall feels his dizziness and vertigo is better than yesterday, still symptomatic, denies any weakness or numbness in extremity, denies any chest pain or shortness of breath or fever
or chill.
Eats and drinks well
Objective Data
-
Vital Signs:
Vital Signs
Temp Pulse Resp BP Pulse Ox
98.2 F 89 16 141/84 96
10/25/23 07:55 10/25/23 07:55 10/25/23 07:55 10/25/23 07:55 10/25/23 10:33
I&O
10/24/23 10/25/23 10/26/23
07:59 07:59 07:59
Intake Total 720 / 720 540 / 540
Output Total 350 / 350 800 / 800
Balance 370 / 370 -260 / -260
Review of Systems
-
All other systems: Reviewed and negative
[2023-10-25 15:55] VITALS: BP 147/67
[2023-10-25 16:35] VITALS: BP 134/69; PULSE 80; O2SAT 96
[2023-10-25] MEDS: SEROQUEL 12.5 MG PO (21:56)
[2023-10-25] MEDS: LIPITOR 40 MG PO (21:56)
[2023-10-25 23:55] VITALS: BP 153/90
[2023-10-26] VITALS (7 sets, daily range): BP systolic 132–182; BP diastolic 77–95; PULSE 86
[2023-10-26] MEDS: PLAVIX 75 MG PO (08:06)
[2023-10-26] MEDS: PROSCAR 5 MG PO (08:06)
[2023-10-26] MEDS: ZOLOFT 25 MG PO (08:06)
[2023-10-26] MEDS: FLOMAX 0.400000000000000022 MG PO (08:06)
[2023-10-26] MEDS: DELTASONE 30 MG PO (08:06)
--- NOTE | 2023-10-26 12:11 | CM ---
Addendum entered by Cyndi Erwin 10/26/23 12:48:
Plan: Discharge to [facility] tomorrow
Report # [phone]

Original Note:
Met with patient at bedside
IMM explained; form signed @ 1202
Covid-19 test needed in the morning
Plan: Discharge to [facility] tomorrow; Brother will transport to the facility and will be here to pick him up @ 1300
--- NOTE | 2023-10-26 13:44 | W.PN.HOSP.TC ---
Today's Communication/Plan
-
DC in am
Assessment / Plan
Assessment / Plan
A/P: Patient is a 77y M with PMH significant for migraines, HTN and vertigo who presents to ED complaining of vertigo and nausea
Acute Vertigo preceded by acute onset of tinnitus in left ear
Hx of intermittent Vertigo/BPPV
Vestibular neuronitis than BPPV.
- Positive nystagmus on exam while looking to left .
-Still symptomatic needing to close his eyes to help with vertigo. MRI was negative for acute finding
- No motor deficit , no tremor
- Improved GI symptoms and resolved tinnitus
- CT head was unremarkable in the ED
-Neurology input
Close monitoring
PT recommended care home
OT eval
Not safe for discharge home as she lives alone, plan for placement accepted in a longterm but because of the Medicare we will cannot leave until Sunday.
Patient initiated on steroids now.
Anxiety / Depression
- Stable. Continue current med regimen.
BPH
- Stable. Continue Flomax / Proscar.
Patton catheter placed and since October 17, will DC and see how his he doing
Get a UA
There is any issue not urinating then we will replace with Patton and and get a urology consult
Hx of CVA
cw Plavix
DVT Prophylaxis: SCDs
Code Status: Full
Anticipated Discharge: Within 24 hours
Subjective/Interval History
-
Date of Service: October 26, 2023
continued improvement with history of vertigo
Objective Data
-
Vital Signs:
Vital Signs
Temp Pulse Resp BP Pulse Ox
97.8 F 80 14 132/77 95
10/26/23 12:05 10/26/23 12:05 10/26/23 12:05 10/26/23 12:05 10/26/23 12:05
I&O
10/25/23 10/26/23 10/27/23
06:59 06:59 06:59
Intake Total 540 / 540 840 / 840
Output Total 800 / 800
Balance -260 / -260 840 / 840
Review of Systems
-
Constitutional: Denies Fever
Respiratory: Denies Trouble Breathing
Cardiac: Denies Chest Pain
Abdomen/GI: Denies Abdominal Pain, Nausea or Vomiting
Genitourinary: Reports Difficulty Voiding (chronic)
Neuro: Reports Dizzy (vertigo improved)
Physical Exam
-
General: No Apparent Distress
HEENT: Moist Mucous Membranes
Respiratory: Clear to Auscultation
Cardiac: Regular Rhythm and S1/S2
Neuro: AO x 3 and No Motor Deficits; Negative Tremors, Slurred Speech or Facial Droop
Psych: Calm; Negative Confused
--- NOTE | 2023-10-26 16:11 | PTCARENOTE ---
Patient with complaints of difficulty voiding. Patient states that he takes Bethanechol 10 mg bid at home. Added to home medication list and MD notified. Drug is not available in that dose and patient does not have home medications with him.
Pharmacy and MD aware and are collaborating on alternative medication. Patient bladder scanned for over 400 mls. MD notified and instructed to straight cath. Straight cathed for 410 mls. Awaiting clarification on Bethanechol
[2023-10-26] MEDS: URECHOLINE 12.5 MG PO (16:43)
[2023-10-26] MEDS: LIPITOR 40 MG PO (21:53)
[2023-10-26] MEDS: SEROQUEL 12.5 MG PO (21:53)
[2023-10-27 07:35] VITALS: BP 153/89
[2023-10-27] MEDS: ZOLOFT 25 MG PO (07:55)
[2023-10-27] MEDS: PLAVIX 75 MG PO (07:55)
[2023-10-27] MEDS: FLOMAX 0.400000000000000022 MG PO (07:55)
[2023-10-27] MEDS: PROSCAR 5 MG PO (07:55)
[2023-10-27] MEDS: DELTASONE 20 MG PO (07:55)
[2023-10-27] MEDS: URECHOLINE 12.5 MG PO (07:56)
[2023-10-27 11:25] VITALS: BP 147/67
[2023-10-27 12:20] LABS: COVID-19 Antigen Negative (Negative)
--- NOTE | 2023-10-27 12:34 | CM ---
CM spoke with patient and brother/sister in law plan is for transfer to [facility] and CM spoke with Elena, nursing shed workers supervisor who confirmed plan to accept pending COVID - test. CM confirmed with Elena that patient had covid - testing
and nursing to call report to # [phone] // . Patient brother at bedside and plans to transport via car. Patient IMM completed 10/26/23 and CM will continue to follow for discharge planning needs.
Plan; [facility] [place] [place] SN[place] today
--- NOTE | 2023-10-27 13:09 | W.PN.HOSP.TC ---
Today's Communication/Plan
-
dc
Assessment / Plan
Assessment / Plan
A/P: Patient is a 77y M with PMH significant for migraines, HTN and vertigo who presents to ED complaining of vertigo and nausea
Acute Vertigo preceded by acute onset of tinnitus in left ear
Hx of intermittent Vertigo/BPPV
Vestibular neuronitis than BPPV.
- Positive nystagmus on exam while looking to left .
-Still symptomatic needing to close his eyes to help with vertigo. MRI was negative for acute finding
- No motor deficit , no tremor
- Improved GI symptoms and resolved tinnitus
- CT head was unremarkable in the ED
-Neurology input
Close monitoring
PT recommended halfway
OT eval
Not safe for discharge home as she lives alone, plan for placement accepted in a group home but because of the Medicare we will cannot leave until Sunday.
Patient initiated on steroids now- taper on dc
Anxiety / Depression
- Stable. Continue current med regimen.
BPH
with recurrent retention needing straight cath. Pt has been less mobile due to his vertigo on adx . Will place him back on Patton catheter in and try a voiding trail in rehab
Continue Flomax / Proscar.
Hx of CVA
cw Plavix
DVT Prophylaxis: SCDs
Code Status: Full
DW family at bedside
Today is pt's birthday!
Medically stable for discharge to rehab
More than 30 minutes spent in discharge including
Final examination of the patient
Summarizing hospital stay
Instructions for continuing care to all relevant caregivers
Preparation of discharge records, prescriptions, and referral forms
Total time spent (in minutes): 32
Anticipated Discharge: Today
Subjective/Interval History
-
Date of Service: October 27, 2023
Remains improved regarding vertigo.
Patient with recurrent issues with urinary retention and requiring straight caths.
Has his of BPH on mediations.
Denies dysuria or frequency.
Objective Data
-
Vital Signs:
Vital Signs
Temp Pulse Resp BP Pulse Ox
98 F 79 18 147/67 95
10/27/23 11:25 10/27/23 11:25 10/27/23 11:25 10/27/23 11:25 10/27/23 11:25
I&O
10/26/23 10/27/23 10/28/23
06:59 06:59 06:59
Intake Total 840 / 840 1380 / 1380
Output Total 1600 / 1600
Balance 840 / 840 -220 / -220
Review of Systems
-
Respiratory: Denies Trouble Breathing
Cardiac: Denies Chest Pain
Abdomen/GI: Denies Abdominal Pain, Nausea or Vomiting
Neuro: Reports Dizzy (vertigo improved)
Physical Exam
-
General: Comfortable
HEENT: Moist Mucous Membranes
Respiratory: Clear to Auscultation
Cardiac: Regular Rhythm and S1/S2
GI: Soft
Musculoskeletal: No Edema
Neuro: AO x 3, No Motor Deficits and Other (no nystagmus)
Psych: Calm
--- NOTE | 2023-10-27 13:16 | W.DS.TRANS ---
DC Summary - [employer]
-
Discharge Instructions:
Discharge Diagnosis/Procedures Vestibular neuronitis
Diet Low Cholesterol
Activity As tolerated
Driving Restrictions No driving
Other Services PT,OT
Instructions:
Stand-Alone Forms:
Changes to Home Medications: Yes
Discharge Medications:
DC Medications w/original date entered in [employer]
ascorbic acid (vitamin C) 500 mg tablet (Vitamin C) 500 mg PO DAILY Supplement 10/12/13
bethanechol chloride 5 mg tablet 10 mg PO BID 10/12/13
clonazepam 0.5 mg tablet 0.25 mg PO HS Sleep 10/12/13
clopidogrel 75 mg tablet 75 mg PO DAILY Blood Clot Prevention/Tx 10/12/13
finasteride 5 mg tablet 5 mg PO DAILY Urinary Issue 10/12/13
multivitamin (One Daily Multivitamin tablet) 1 ea PO DAILY Supplement 10/12/13
tamsulosin 0.4 mg capsule 0.4 mg PO DAILY Urinary Issue 10/12/13
aspirin 325 mg tablet 325 mg PO DAILY 04/28/19
atorvastatin 40 mg tablet (Lipitor) 40 mg PO HS #30 tabs 04/28/19
sertraline 25 mg tablet 25 mg PO DAILY Depression 10/20/23
cyclosporine 0.05 % eye drops in a dropperette 1 drp BOTH EYES BID dry eyes 10/24/23
quetiapine 50 mg tablet 25 mg PO HS Mental Health/Anxiety 10/24/23
meclizine 12.5 mg tablet 12.5 mg PO Q8HPRN #1 tab 10/27/23
prednisone 10 mg tablet 20 mg (2 x 10 mg) PO DAILY #1 tab 10/27/23
Home Medication Changes
New medication - Prednisone taper, as needed antivert
Pending Results: No
--- NOTE | 2023-10-27 15:09 | PTCARENOTE ---
IV discontinued. Patton bag converted to leg bag. Report called to Cheryl at [facility]. Pt transported off the floor via wheelchair by PCT accompanied by family who will transport to facility.
--- NOTE | 2023-10-27 18:36 | W.DCSUMMARY ---
Discharge Summary
Discharge Data
Date of Admission: 10/24/23
Date of Discharge: 10/27/23
-
Pending Results: No
Hospital Course
Primary diagnosis:
Acute vestibular neuronitis
Acute urinary retention
Benign prostatic hypertension
Secondary diagnosis:
History of benign positional vertigo
Anxiety/depression
History of cerebrovascular accident
Hospital course:
Patient with remote history of BPPV presents with a acute vertigo and this time he had persistent nystagmus and severe symptoms unlikely BPV and ENT felt this may be acute vestibular neuronitis and was put on steroids with good response. No
evidence of stroke on MRI of the brain.
His symptoms were severe and prolonged; it was less mobile than normal precipitating urinary retention requiring straight caths frequently and ultimately had a Patton catheter placed. He is known to have BPH on medication. There was seen by PT who
recommended rehab and he was discharged to rehab where a voiding trial will be attempted again.
Consultants on board:
[facility]
Discharge Plan
-
Patient Disposition: Fdc/SNF
Discharge Diagnosis/Procedures: Vestibular neuronitis
Diet: Low Cholesterol
Activity: As tolerated
Driving Restrictions: No driving
Other Services: PT and OT
Activity Restrictions/Additional Instructions:
Urine voiding trail in a week at rehab
Referrals:
Rufus Brown MD [Family Provider] -
Prescriptions:
New
prednisone 10 mg Tablet
20 mg PO DAILY Qty: 1 0RF
Rx Instructions:
20mg * one more day
10mg * 2 days and stop
meclizine 12.5 mg Tablet
12.5 mg PO Q8HPRN Qty: 1 0RF
Continued
multivitamin [One Daily Multivitamin] 1 EACH tablet
1 ea PO DAILY
clonazepam 0.5 MG tablet
0.25 mg PO HS
Rx Instructions:
LAST FILLED 05/15/23 0.5MG TAB SIG 1/2 PO HS #3 X6 DAYS SUPPLY
clopidogrel 75 MG tablet
75 mg PO DAILY
ascorbic acid (vitamin C) [Vitamin C] 500 MG tablet
500 mg PO DAILY
tamsulosin 0.4 MG capsule
0.4 mg PO DAILY
bethanechol chloride 5 MG tablet
10 mg PO BID
finasteride 5 MG tablet
5 mg PO DAILY
aspirin 325 MG tablet
325 mg PO DAILY 0RF
Rx Instructions:
OTC meds
atorvastatin [Lipitor] 40 MG tablet
40 mg PO HS Qty: 30 0RF
sertraline 25 mg tablet
25 mg PO DAILY
cyclosporine 0.05 % dropperette
1 drp BOTH EYES BID
quetiapine 50 mg tablet
25 mg PO HS
Discontinued
ondansetron 4 mg tablet,disintegrating
4 mg PO TIDPRN PRN (Reason: nausea/vomiting) Qty: 20 0RF
Discharge Orders:
Discharge Patient (As Directed); Ordered 10/27/23
Ordered By: Arsh Robles
Discharge Date and Time
Discharge Date/Time: 10/27/23 14:12
Print Language: FRENCH
== END 2023-10-27 14:12 | DRG 641 ==
LOC: 4 EAST ACU 10:42
PROVIDERS: ADMITTING PHYSICIAN Hospitalist; ATTENDING PHYSICIAN Internal Medicine; CONSULT PHYSICIAN Otolaryngology; EMERGENCY PHYSICIAN Emergency Medicine; FAMILY PHYSICIAN Family Medicine
DX: E87.1 Hypo-osmolality and hyponatremia (principal); H81.20 Vestibular neuronitis, unspecified ear; I10 Essential (primary) hypertension; F32.A Depression, unspecified; N40.1 Benign prostatic hyperplasia with lower urinary tract symptoms; R33.8 Other retention of urine; G43.909 Migraine, unspecified, not intractable, without status migrainosus; H55.00 Unspecified nystagmus; Z86.73 Personal history of transient ischemic attack (TIA), and cerebral infarction without residual deficits; Z87.730 Personal history of (corrected) cleft lip and palate; Z79.02 Long term (current) use of antithrombotics/antiplatelets; Z79.82 Long term (current) use of aspirin; Z60.2 Problems related to living alone
CPT/HCPCS: 70450; 70551; 80048; 80053; 82962; 84484; 85025; 85027; 87811; 93005; 96374; 96375; 97116; 97162; 97166; 97530; 97535; 99285

== ENCOUNTER 2023-11-11 08:46 | Emergency (ER) | payer MEDICARE, SELFPAY ==
[2023-11-11 08:51] VITALS: BP 110/76
--- NOTE | 2023-11-11 09:27 | ED.GENMED ---
History of Present Illness
General
Chief Complaint: Catheter/Tube Problem
Source: patient
Exam Limitations: none
Time Seen by Provider: 11/11/23 09:19
Travel History
Have you had any contact with someone who has COVID-19?: No
Do you have any symptoms of coronavirus? Fever > 100 degrees, chills, cough, shortness of breath, sore throat, loss of taste or smell, muscle aches, or headache?: No
History of Present Illness
History of Present Illness:
Patient with a urinary catheter placed 1 week ago. Overnight he felt like the catheter was blocked. His bed was wet with urine. The bag did not appear to be draining. No fever chills no lower abdominal pain no other complaints. Patient feels
well at this
Past History
Past History
ED Past Medical History: HTN and Other (TIA, vertigo); Negative IDDM
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
Social History
Tobacco: Non-smoker
Alcohol: None
Drug: None
Personal: Other
Living: alone
Employment: Other
Family History
Family History: Negative Early CAD
Review of Systems
Review of Systems
All Other Systems: Not applicable
Constitutional: Denies fever or chills
ABD/GI: Denies abdominal pain
Phy Exam
Physical Exam
Physical Exam:
GENERAL: Alert and oriented in no apparent distress
EYE: Orbits normal.
CARDIAC: Regular rate and rhythm
LUNGS: No respiratory distress
ABDOMEN: Soft, without focal tenderness or distention. No suprapubic distention noted clinically
: Patton in place. No blood around the urethra. Bag is relatively empty but appears to have a small amount of urine starting to drain at the tip
NEUROLOGICAL: Alert and oriented , grossly non-focal
SKIN: Warm and dry
PSYCH: Normal and appropriate interaction.
Course
Vital Signs
Initial and Last Documented VS:
Initial Vital Signs
Temp Pulse Resp BP Pulse Ox
99.0 F 104 17 110/76 94
11/11/23 08:51 11/11/23 08:51 11/11/23 08:51 11/11/23 08:51 11/11/23 08:51
Last Documented Vital Signs
Temp Pulse Resp BP Pulse Ox
99.0 F 104 17 110/76 94
11/11/23 08:51 11/11/23 08:51 11/11/23 08:51 11/11/23 08:51 11/11/23 08:51
MDM/Problems Addressed
Differential Diagnosis Includes:
Patient with catheter blockage issues overnight. Was flushed by the RN. He did get return. Bladder ultrasound was done multiple times with very little urine in the bladder, about 25 cc. At this time we will give him p.o. fluids observe to see if
this is draining correctly. No infectious symptoms
*Critical Care Note
Total Time (30-74mins, 75-104mins- exclusive of procedures): Not Applicable
Data Reviewed
Review of Other/Old Records Reveals: Labs, Records and Discharge Summary
Update Note
Update Note:
Patient with 400 cc out. Functioning well. Discharged to follow-up. No infectious symptoms patient has urologic follow-up
ED Attending Note
-
Portions of this chart may have been created with voice recognition software.� Occasional wrong word or��sound alike� substitutions may have occurred due to the inherent limitations of voice recognition software.
Discharge Plan
Departure
Patient Disposition: Home (Routine Discharge)
Date of Disposition: 11/11/23
Time of Disposition: 10:55
Patient with high blood pressure during this ER visit?: No
Discharge Problem:
Malfunctioning Patton catheter
Instructions: How to Care for Your Patton Catheter, Male
Prescriptions:
No Action
multivitamin [One Daily Multivitamin] 1 EACH tablet
1 ea PO DAILY
clonazepam 0.5 MG tablet
0.25 mg PO HS
Rx Instructions:
LAST FILLED 05/15/23 0.5MG TAB SIG 1/2 PO HS #3 X6 DAYS SUPPLY
clopidogrel 75 MG tablet
75 mg PO DAILY
ascorbic acid (vitamin C) [Vitamin C] 500 MG tablet
500 mg PO DAILY
tamsulosin 0.4 MG capsule
0.4 mg PO DAILY
bethanechol chloride 5 MG tablet
10 mg PO BID
finasteride 5 MG tablet
5 mg PO DAILY
aspirin 325 MG tablet
325 mg PO DAILY 0RF
Rx Instructions:
OTC meds
atorvastatin [Lipitor] 40 MG tablet
40 mg PO HS Qty: 30 0RF
sertraline 25 mg tablet
25 mg PO DAILY
cyclosporine 0.05 % dropperette
1 drp BOTH EYES BID
quetiapine 50 mg tablet
25 mg PO HS
prednisone 10 mg Tablet
20 mg PO DAILY Qty: 1 0RF
Rx Instructions:
20mg * one more day
10mg * 2 days and stop
meclizine 12.5 mg Tablet
12.5 mg PO Q8HPRN Qty: 1 0RF
Referrals:
Rufus Brown MD [Family Provider] -
Activity Restrictions/Additional Instructions:
Follow-up with urology
Return with any recurrent blockage issues or concerns or any infectious issues including fever chills rigors etc.
Interventions
Interventions:
*Risk Screen - Suicide Last Done: 11/11/23 08:50
*General Assessment Last Done: 11/11/23 08:50
*Neglect/Abuse Screening Last Done: 11/11/23 08:50
*ED COVID-19 Vaccine History Last Done: 11/11/23 08:50
XR-Ivkgmd-Gwhgdcople Assessment Last Done: 11/11/23 09:03
ED-Male Genitourinary Assessment Last Done: 11/11/23 09:03
Discharge Date and Time
Print Language: FRENCH
== END 2023-11-11 11:21 | disposition home or self-care (01) ==
LOC: EMR 08:46
PROVIDERS: EMERGENCY PHYSICIAN Emergency Medicine; FAMILY PHYSICIAN Family Medicine
DX: T83.018A Breakdown (mechanical) of other urinary catheter, initial encounter (principal); R33.9 Retention of urine, unspecified
CPT/HCPCS: 99283; 51798

== ENCOUNTER 2023-11-13 00:31 | Emergency (ER) | payer MEDICARE, SELFPAY ==
[2023-11-13 00:35] VITALS: BP 166/100
--- NOTE | 2023-11-13 01:12 | ED.GENMED ---
History of Present Illness
General
Chief Complaint: Catheter/Tube Problem
Source: patient
Exam Limitations: none
Time Seen by Provider: 11/13/23 01:03
Travel History
Have you had any contact with someone who has COVID-19?: No
Do you have any symptoms of coronavirus? Fever > 100 degrees, chills, cough, shortness of breath, sore throat, loss of taste or smell, muscle aches, or headache?: No
History of Present Illness
History of Present Illness:
See MDM
Past History
Past History
ED Past Medical History: HTN and Other (TIA, vertigo); Negative IDDM
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
Social History
Tobacco: Non-smoker
Alcohol: None
Drug: None
Personal: Other
Living: alone
Employment: Other
Family History
Family History: Negative Early CAD
Phy Exam
Physical Exam
Physical Exam:
See MDM
Course
Vital Signs
Initial and Last Documented VS:
Initial Vital Signs
Temp Pulse Resp Pulse Ox
98.1 F 116 24 96
11/13/23 00:33 11/13/23 00:33 11/13/23 00:33 11/13/23 00:33
Last Documented Vital Signs
Temp Pulse Resp BP Pulse Ox
98.1 F 116 24 166/100 96
11/13/23 00:33 11/13/23 00:33 11/13/23 00:33 11/13/23 00:35 11/13/23 00:33
MDM/Problems Addressed
Differential Diagnosis Includes:
HPI and MDM Narrative:
78-year-old male presenting with a clogged Patton catheter. Patient was here few days ago with the same issue. However, patient states he switched the large bag to the leg bag. On arrival to the emergency department, the back started to fill. He
denies abdominal pain.
Will have nursing irrigate catheter to confirm that the blockage has resolved.
Physical exam
General: Well appearing and non-toxic
HEENT: protecting airway
Neck: appears supple
CV: No evidence of cyanosis
Resp: No accessory muscle use
Abd: Non-distended and nontender.
: Patton catheter and intact and filling with straw-colored urine
Extremities: No deformities
Neuro: alert
Psych: Normal affect
Skin: Intact
Problems Addressed including Acute and Chronic Conditions affecting care:
1. Patton catheter blockage
Acuity: acute
Prognosis: stable
Details: Symptoms self resolved. Will irrigate to confirm no longer blocked
Differential Diagnosis (but not limited to): Urinary tract infection, Patton catheter malfunction, clogged Patton catheter
Testing considered: Urinalysis
Drug therapy (if applicable): OTC meds, please see d/c instruction regarding Rx drugs
Amount and/or Complexity of Data Reviewed
Clinical info obtained from: Patient
External data reviewed: N/A
Labs I independently reviewed (but not limited to): N/A
Radiology: N/A
Pulse Ox: not hypoxic
EKG independently reviewed: N/A
Rn Production: N/A
Critical Care: N/A
Risk of Complication:
Social Determinants of health: Good social support
Discussed with other providers: N/A
Escalation of Care includes Admit/Obs: After being observed in the Emergency Department, pt stable for discharge.
Occasional wrong word or 'sound a like' substitutions may have occurred due to the inherent limitations of voice recognition software. Read the chart carefully and recognize, using context, where substitutions have occurred.
*Critical Care Note
Total Time (30-74mins, 75-104mins- exclusive of procedures): Not Applicable
ED Attending Note
-
Portions of this chart may have been created with voice recognition software.� Occasional wrong word or��sound alike� substitutions may have occurred due to the inherent limitations of voice recognition software.
Discharge Plan
Departure
Patient Disposition: Home (Routine Discharge)
Date of Disposition: 11/13/23
Time of Disposition: 01:19
Patient with high blood pressure during this ER visit?: Yes
Discharge Problem:
Complication, blocked Patton catheter
Instructions: How to Care for Your Patton Catheter, Male, BLOOD PRESSURE
Prescriptions:
No Action
multivitamin [One Daily Multivitamin] 1 EACH tablet
1 ea PO DAILY
clonazepam 0.5 MG tablet
0.25 mg PO HS
Rx Instructions:
LAST FILLED 05/15/23 0.5MG TAB SIG 1/2 PO HS #3 X6 DAYS SUPPLY
clopidogrel 75 MG tablet
75 mg PO DAILY
ascorbic acid (vitamin C) [Vitamin C] 500 MG tablet
500 mg PO DAILY
tamsulosin 0.4 MG capsule
0.4 mg PO DAILY
bethanechol chloride 5 MG tablet
10 mg PO BID
finasteride 5 MG tablet
5 mg PO DAILY
aspirin 325 MG tablet
325 mg PO DAILY 0RF
Rx Instructions:
OTC meds
atorvastatin [Lipitor] 40 MG tablet
40 mg PO HS Qty: 30 0RF
sertraline 25 mg tablet
25 mg PO DAILY
cyclosporine 0.05 % dropperette
1 drp BOTH EYES BID
quetiapine 50 mg tablet
25 mg PO HS
prednisone 10 mg Tablet
20 mg PO DAILY Qty: 1 0RF
Rx Instructions:
20mg * one more day
10mg * 2 days and stop
meclizine 12.5 mg Tablet
12.5 mg PO Q8HPRN Qty: 1 0RF
Activity Restrictions/Additional Instructions:
Please return for any worsening symptoms.
You may return at any time if you have further concerns.
Please follow up with your doctor at the first available appointment, preferably this week.
Thank you for choosing [facility].
Interventions
Interventions:
*Risk Screen - Suicide Last Done: 11/13/23 00:33
*Neglect/Abuse Screening Last Done: 11/13/23 00:33
Discharge Date and Time
Print Language: SWEDISH
== END 2023-11-13 02:11 | disposition home or self-care (01) ==
LOC: EMR 00:31
PROVIDERS: EMERGENCY PHYSICIAN Student in an Organized Health Care Education/Training Program; FAMILY PHYSICIAN Family Medicine
DX: T83.091A Other mechanical complication of indwelling urethral catheter, initial encounter (principal); X58.XXXA Exposure to other specified factors, initial encounter; I10 Essential (primary) hypertension; Z86.73 Personal history of transient ischemic attack (TIA), and cerebral infarction without residual deficits
CPT/HCPCS: 99282

== ENCOUNTER → 2023-12-24 10:33 | Outpatient (REF) | payer MEDICARE, SELFPAY | LOC: RAD 10:33 | PROVIDERS: ATTENDING PHYSICIAN Physician Assistant | DX: R10.2 Pelvic and perineal pain (principal) | CPT/HCPCS: 76700; 76770 ==

== ENCOUNTER → 2024-01-05 09:33 | Outpatient (REF) | payer MEDICARE, SELFPAY ==
[2024-01-05 11:14] LABS: % Eosinophils 6.7 % (0-6); % Immature Granulocytes 0.2 % (0-0.5); % Lymphocytes 29.7 % (20.5-51.1); % Monocytes 8.5 % (1.7-9.3); % Neutrophils 53.9 % (42.2-75.2); Absolute Basophils 0.1 10^3/uL (0-0.2); Absolute Eosinophils 0.4 10^3/uL (0-0.7); Absolute Lymphocytes 1.5 10^3/uL (1.2-3.4); Absolute Monocytes 0.4 10^3/uL (0.1-0.6); Absolute Neutrophils 2.8 10^3/uL (1.4-6.5); Hematocrit 36.7 % (39.0-52.0); Hemoglobin 12.6 g/dL (13.0-18.0); Mean Corp Hgb Conc. 34.3 g/dL (33.0-37.0); Mean Corpuscular Volume 93.1 fL (80.0-94.0); Mean Platelet Volume 10.2 fL (7.4-10.4); Nucleated Red Blood Cells % 0 % (-); Platelet Count 190 10^3/uL (130-400); Red Blood Cell Count 3.94 10^6/uL (4.70-6.10); White Blood Cell Count 5.2 10^3/uL (4.8-10.8)
[2024-01-05 11:21] LABS: ALT (SGPT) 21 U/L (0-50); AST (SGOT) 26 U/L (17-59); Alkaline Phosphatase 65 U/L (38-126); Blood Urea Nitrogen 22 mg/dl (9-20); Calcium 9.1 mg/dl (8.4-10.2); Carbon Dioxide 29 mmol/L (22-30); Chloride 98 mmol/L (98-107); Glucose 88 mg/dl (70-99); HDL Cholesterol 68 mg/dl; LDL Cholesterol, Calculated 100 mg/dl; Potassium 4.7 mmol/L (3.5-5.1); Sodium 134 mmol/L (135-145); Total Cholesterol 178 mg/dl (50-199); Total Protein 6.6 g/dl (6.3-8.2); Triglyceride 53 mg/dl (10-149); Very Low Density Lipoprotein 10 mg/dl (0-30); eGFR > 60.00
[2024-01-05 11:51] LABS: TSH 2.68 uIU/ml (0.47-4.68)
[2024-01-05 12:10] LABS: Vitamin B12 608 pg/ml (239-931)
== END ==
LOC: REG 09:33
PROVIDERS: ATTENDING PHYSICIAN Nurse Practitioner Family; FAMILY PHYSICIAN Family Medicine
DX: G45.9 Transient cerebral ischemic attack, unspecified (principal); Z86.73 Personal history of transient ischemic attack (TIA), and cerebral infarction without residual deficits; E87.1 Hypo-osmolality and hyponatremia; D52.9 Folate deficiency anemia, unspecified
CPT/HCPCS: 36415; 80053; 80061; 82607; 84443; 85025; 86618

== ENCOUNTER → 2024-01-09 11:36 | Outpatient (REF) | payer MEDICARE, SELFPAY | LOC: HWRAD 11:36 | PROVIDERS: ATTENDING PHYSICIAN Nurse Practitioner Family | DX: Z86.73 Personal history of transient ischemic attack (TIA), and cerebral infarction without residual deficits (principal); G45.9 Transient cerebral ischemic attack, unspecified | CPT/HCPCS: 70450 ==

== ENCOUNTER → 2024-01-15 10:04 | Outpatient (REF) | payer MEDICARE, SELFPAY | LOC: RAD 10:04 | PROVIDERS: ATTENDING PHYSICIAN Nurse Practitioner Family | DX: G45.9 Transient cerebral ischemic attack, unspecified (principal) | CPT/HCPCS: 93880 ==

== ENCOUNTER → 2024-04-30 12:14 | Outpatient (REF) | payer MEDICARE, SELFPAY | LOC: RAD 12:14 | PROVIDERS: ATTENDING PHYSICIAN Nurse Practitioner Family; FAMILY PHYSICIAN Family Medicine | DX: M25.551 Pain in right hip (principal) | CPT/HCPCS: 73502 ==

== ENCOUNTER 2024-07-17 23:36 | Observation (INO) | payer MEDICARE, SELFPAY ==
[2024-07-17 14:35] VITALS: BP 170/113
[2024-07-17 15:02] LABS: % Basophils 0.8 % (0-2); % Eosinophils 3.8 % (0-6); % Immature Granulocytes 0.2 % (0-0.5); % Lymphocytes 23.8 % (20.5-51.1); % Monocytes 6.1 % (1.7-9.3); % Neutrophils 65.3 % (42.2-75.2); Absolute Eosinophils 0.2 10^3/uL (0-0.7); Absolute Lymphocytes 1.3 10^3/uL (1.2-3.4); Absolute Monocytes 0.3 10^3/uL (0.1-0.6); Absolute Neutrophils 3.4 10^3/uL (1.4-6.5); Hematocrit 39.6 % (39.0-52.0); Hemoglobin 13.6 g/dL (13.0-18.0); Mean Corp Hgb Conc. 34.3 g/dL (33.0-37.0); Mean Corpuscular Hgb 31.7 pg (27.0-31.0); Mean Corpuscular Volume 92.3 fL (80.0-94.0); Mean Platelet Volume 9.6 fL (7.4-10.4); Nucleated Red Blood Cells % 0 % (-); Platelet Count 188 10^3/uL (130-400); Red Blood Cell Count 4.29 10^6/uL (4.70-6.10); Red Cell Dist. Width 12.6 % (11.5-14.5); White Blood Cell Count 5.3 10^3/uL (4.8-10.8)
[2024-07-17 15:15] LABS: ALT (SGPT) 22 U/L (0-50); AST (SGOT) 27 U/L (17-59); Albumin 4.4 g/dl (3.5-5.0); Alkaline Phosphatase 66 U/L (38-126); Blood Urea Nitrogen 22 mg/dl (9-20); Calcium 8.9 mg/dl (8.4-10.2); Carbon Dioxide 28 mmol/L (22-30); Chloride 98 mmol/L (98-107); Glucose 114 mg/dl (70-99); Sodium 135 mmol/L (135-145); Total Bilirubin 0.4 mg/dl (0.2-1.3); Total Protein 7.1 g/dl (6.3-8.2); eGFR > 60.00
--- NOTE | 2024-07-17 18:34 | ED.GENMED ---
History of Present Illness
General
Chief Complaint: Nose Bleed
Time Seen by Provider: 07/17/24 17:24
History of Present Illness
History of Present Illness:
78-year-old male with history of TIA on Plavix and hypertension presenting for a nosebleed. Patient reports symptoms started several hours ago. Denies any foreign bodies of the nose. Denies any prior history of nosebleeds. Denies trauma. Denies
weakness or lightheadedness. Denies fever or additional acute medical complaints
Past History
Past History
ED Past Medical History: HTN and Other (TIA, vertigo); Negative IDDM
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
Social History
Tobacco: Non-smoker
Alcohol: None
Drug: None
Personal: Other
Living: alone
Employment: Other
Family History
Family History: Negative Early CAD
Phy Exam
Physical Exam
Physical Exam:
General: Well-appearing, no clinical signs of dehydration, nontoxic and in no acute distress
HEENT: protecting airway, trickling of blood from left nare
Neck: appears supple
CV: Normal heart rate
Resp: No accessory muscle use, no increased work of breathing
Abd: No distention
Extremities: No deformities, no swelling
Neuro: alert, no focal neurologic deficit
: deferred
Rectal: deferred
Psych: Normal affect
Skin: Intact
Course
Orders/Labs/Results
Orders:
Orders
07/17/24 14:42
Complete Blood Count/With Diff Urgent
Comprehensive Metabolic Panel Urgent
07/17/24 20:04
Acetaminophen [Tylenol] 1,000 mg PO NOW STA
07/17/24 20:48
Amoxicillin 875 mg/Clav 125 mg [Augmentin 875 mg/125 mg] 1 tablet PO NOW STA
Abnormal Lab Results
07/17/24
14:42
RBC 4.29 L 10^6/uL
(4.70-6.10)
MCH 31.7 H pg
(27.0-31.0)
BUN 22 H mg/dl
(9-20)
Glucose 114 H mg/dl
(70-99)
07/17/24 14:42
07/17/24 14:42
Vital Signs
Initial and Last Documented VS:
Initial Vital Signs
Temp Pulse Resp BP Pulse Ox
98.4 F 87 16 170/113 98
07/17/24 14:35 07/17/24 14:35 07/17/24 14:35 07/17/24 14:35 07/17/24 14:35
Last Documented Vital Signs
Temp Pulse Resp BP Pulse Ox
98.4 F 112 22 165/94 98
07/17/24 14:35 07/17/24 19:54 07/17/24 19:54 07/17/24 19:54 07/17/24 14:35
Procedures
Nosebleed
Drug treatment: none
Treatment: local pressure applied, Merocel packing and Posterior balloon
Post treatment bleeding: still some oozing
MDM/Problems Addressed
MDM/Problems Addressed:
78-year-old male with history of TIA on aspirin and Plavix and hypertension presenting for nosebleed. Vital signs on arrival significant for high blood pressure.
On exam patient is resting comfortably, no acute, does have epistaxis from left nare. Will try conservative measures, start with Merocel. Patient screening laboratory analysis prior to my assessment, normal blood counts.
18:30 - Patient's bleeding has slowed, will replace merosel and reassess.
20:00 -patient was still bleeding despite replacement of merosel so anterior Rhino Rocket placed and bleeding has subsided.
21:00 -persistent oozing so posterior packing placed. Hemostasis achieved. Patient does not feel comfortable going home and is in pain. ENT aware. Plan for observation admission
*Critical Care Note
Total Time (30-74mins, 75-104mins- exclusive of procedures): 52
comment:
The high probability of a clinically significant, sudden or life threatening deterioration, posterior epistaxis, required my full and direct attention, intervention and personal management. The aggregate critical care time was 52 minutes. This time
is in addition to time spent performing reported procedures but includes the following:
[x] Data Review and interpretation
[x] Patient assessment and monitoring of vital signs
[x] Documentation
[x] Medication orders and management
ED Attending Note
-
Portions of this chart may have been created with voice recognition software.� Occasional wrong word or��sound alike� substitutions may have occurred due to the inherent limitations of voice recognition software.
Discharge Plan
Departure
Discharge Problem:
Epistaxis, Hypertension
Prescriptions:
No Action
multivitamin [One Daily Multivitamin] 1 EACH tablet
1 ea PO DAILY
clonazepam 0.5 MG tablet
0.25 mg PO HS
Rx Instructions:
LAST FILLED 05/15/23 0.5MG TAB SIG 1/2 PO HS #3 X6 DAYS SUPPLY
clopidogrel 75 MG tablet
75 mg PO DAILY
ascorbic acid (vitamin C) [Vitamin C] 500 MG tablet
500 mg PO DAILY
tamsulosin 0.4 MG capsule
0.4 mg PO DAILY
bethanechol chloride 5 MG tablet
10 mg PO BID
finasteride 5 MG tablet
5 mg PO DAILY
aspirin 325 MG tablet
325 mg PO DAILY 0RF
Rx Instructions:
OTC meds
atorvastatin [Lipitor] 40 MG tablet
40 mg PO HS Qty: 30 0RF
sertraline 25 mg tablet
25 mg PO DAILY
cyclosporine 0.05 % dropperette
1 drp BOTH EYES BID
quetiapine 50 mg tablet
25 mg PO HS
prednisone 10 mg Tablet
20 mg PO DAILY Qty: 1 0RF
Rx Instructions:
20mg * one more day
10mg * 2 days and stop
meclizine 12.5 mg Tablet
12.5 mg PO Q8HPRN Qty: 1 0RF
Referrals:
Rufus Brown MD [Family Provider] -
Cliff Soria MD [Active] -
Interventions
Interventions:
*Risk Screen - Suicide Last Done: 07/17/24 14:35
*General Assessment Last Done: 07/17/24 19:54
*Neglect/Abuse Screening Last Done: 07/17/24 14:35
ED-EENT Assessment Last Done: 07/17/24 17:50
Discharge Date and Time
Print Language: BAHAMIAN
[2024-07-17 19:54] VITALS: BP 165/94
[2024-07-17] MEDS: TYLENOL 1000 MG PO (21:21)
[2024-07-17] MEDS: AUGMENTIN 875 MG/125 MG 1 TABLET PO (21:23)
[2024-07-17 22:00] VITALS: BP 168/95
--- NOTE | 2024-07-17 22:42 | HPS.HSE ---
Family Physician
-
Family Physician: Rufus Brown
Chief Complaint
-
nosebleed
History of Present Illness
Patient is a 78-year-old male with past medical history significant for hypertension, CAD, BPH, Hx TIA, anxiety, and obsessive-compulsive disorder who presented to [place] [facility] for evaluation of nosebleed. Patient reports acute onset nosebleed with
no trauma. He states it just started and would not stop. Denies any dizziness or nausea. Denies any recent illness, cough, shortness of breath, chest pain, palpitations, nausea, vomiting, constipation, diarrhea and urinary symptoms.
Medical History
Past Medical History
Past Medical History: Reports Other
Additional Past Medical History:
hypertension
CAD
BPH
Hx TIA
anxiety
obsessive-compulsive disorder
Past Surgical History: Reports Other
Additional Past Surgical History:
knee arthroscopy
cleft palate repair
Social History
Tobacco: Non-smoker
Alcohol: None
Drug: None
Living: Alone
Employment: Retired
Family History
Family History: Not pertinent
Allergies / Home Medications
Allergies reflects when Allergies were last updated in [employer].
Home Medications with original date entered in [employer]
Allergy/Medication List:
Allergies
Allergy/AdvReac Type Severity Reaction Status Date / Time
No Known Allergies Allergy Verified 07/17/24 14:38
Home Medications
ascorbic acid (vitamin C) 500 mg tablet (Vitamin C) 500 mg PO DAILY Supplement 10/12/13
clonazepam 0.5 mg tablet 0.25 mg PO HS Sleep 10/12/13
clopidogrel 75 mg tablet 75 mg PO DAILY Blood Clot Prevention/Tx 10/12/13
finasteride 5 mg tablet 5 mg PO DAILY Urinary Issue 10/12/13
tamsulosin 0.4 mg capsule 0.4 mg PO DAILY Urinary Issue 03/30/14
aspirin 325 mg tablet 325 mg PO DAILY 04/28/19
atorvastatin 40 mg tablet (Lipitor) 40 mg PO HS #30 tabs 04/28/19
sertraline 25 mg tablet 25 mg PO DAILY Depression 10/20/23
cyclosporine 0.05 % eye drops in a dropperette 1 drp BOTH EYES BID dry eyes 10/24/23
bethanechol chloride 10 mg tablet 10 mg PO BID 07/17/24
quetiapine 25 mg tablet (Seroquel) 25 mg PO HS 07/17/24
therapeutic multivitamin 1 tab PO DAILY 07/17/24
Review of Systems
-
History Source: Patient
A 12 point ROS was completed and negative except as noted: Yes
Constitutional: Reports No Symptoms
EENT: Reports Other (nosebleed)
Respiratory: Reports No Symptoms
Cardiac: Reports No Symptoms
Abdomen/GI: Reports No Symptoms
: Reports No Symptoms
Musculoskeletal: Reports No Symptoms
Skin: Reports No Symptoms
Neurological: Reports No Symptoms
Endocrine: Reports No Symptoms
Hematologic/Lymphatic: Reports No Symptoms
Psych: Reports No Symptoms
Physical Exam
Vital Signs
Vital Signs
Temp Pulse Resp BP Pulse Ox
98.4 F 112 22 168/95 93
07/17/24 14:35 07/17/24 19:54 07/17/24 19:54 07/17/24 22:00 07/17/24 22:30
Physical Exam
General: Well Developed, Well Nourished, No Apparent Distress, Comfortable and Conversant
HEENT: NormoCephalic, Moist mucous membranes, Atraumatic, PERRLA, [place] Conjunctivae, Nose Appears Normal, Ears Appear Normal, Neck Nontender and Other (epitaxis, anterior Rhino Rocket)
Respiratory: Clear and Non Labored Respirations
Cardiac: S1/S2 and Regular Rhythm; No Murmur, Rub or Gallop
Breast: Deferred by me
GI: Soft, Non Tender, Non Distended and Normal Bowel Sounds; No Organomegaly
Rectal: Deferred by Provider
Genito-urinary: Deferred by me
Musculoskeletal: No Clubbing, No Cyanosis and No Edema
Skin: Warm and IV/Catheter Site; No Rash
Neuro: Awake, Alert, AO x 3 and Nonfocal/grossly intact
Hematologic/Lymphatic: No Lymphadenopathy
Psych: Calm and Intact Judgment/Insight
Laboratory Results
-
07/17/24 14:42
07/17/24 14:42
Laboratory Results
Total Bilirubin 0.4 mg/dl (0.2-1.3) 07/17/24 14:42
AST 27 U/L (17-59) 07/17/24 14:42
ALT 22 U/L (0-50) 07/17/24 14:42
Alkaline Phosphatase 66 U/L (38-126) 07/17/24 14:42
Data Reviewed
-
Lab Data: Labs Reviewed by me
Impression/Plan
-
IMPRESSION/PLAN:
#epistaxis
- Admit to med/surg for observation
- ENT Consult
- anterior Rhino Rocket in place
- monitor H/H
- PT/INR in morning
- continue Augmentin
#CAD
- continue atorvastatin
#BPH
- continue finasteride and tamsulosin
#Hx TIA
- continue aspirin, and clopidogrel
#anxiety
#obsessive-compulsive disorder
- continue quetiapine and sertraline
#benign hypertension
Code Status: Full Code
DVT Prophylaxis: SCDs
[2024-07-17 23:00] VITALS: BP 172/84
[2024-07-17 23:24] VITALS: BP 161/82
--- NOTE | 2024-07-17 23:37 | W.PN.UPDATE ---
Update Note
Progress Note Update
Patient seen in conjunction with VILMA, agree with her history and physical and assessment and plan.
This is a 78-year-old was a past medical history significant for hypertension as well as a TIA for which she is on high-dose aspirin as well as Plavix presents to the emergency department with an acute episode of nosebleeding.
Patient reports symptoms started several hours prior to arrival. Denies any trauma. Denies any foreign bodies of the nose. Denies any prior history of nosebleeds. Denies trauma. Denies weakness or lightheadedness. Denies fever or additional
acute medical complaints.
Patient had attempted anterior packing in the ED with failure. So posterior packing was placed. He remained uncomfortable so he was referred for observations overnight. ENT consulted. Patient started on prophylactic antibiotics.
Here in the emergency department he was hypertensive but otherwise hemodynamically stable. CBC was within normal limits. Chemistries were also unremarkable.
Assessment and plan
Epistaxis - On aspirin 325 and plavix.
- admit to obs
- continue augmentin
- keep HOB > 30 deg for now
- continue aspirin plavix for TIAs given recent episode
- no anticoagulation for DVT PX
- ENT consult
DVT PPX - SCD
Code status - full code
[2024-07-18 03:22] VITALS: BP 173/89
[2024-07-18 05:22] LABS: Hematocrit 37.2 % (39.0-52.0); Hemoglobin 12.9 g/dL (13.0-18.0); Mean Corp Hgb Conc. 34.7 g/dL (33.0-37.0); Mean Corpuscular Hgb 31.6 pg (27.0-31.0); Mean Corpuscular Volume 91.2 fL (80.0-94.0); Mean Platelet Volume 9.3 fL (7.4-10.4); Platelet Count 192 10^3/uL (130-400); Red Blood Cell Count 4.08 10^6/uL (4.70-6.10); Red Cell Dist. Width 12.4 % (11.5-14.5); White Blood Cell Count 6.7 10^3/uL (4.8-10.8)
[2024-07-18 05:35] LABS: INR 0.98; PT 13.5 Sec (11.4-14.6)
[2024-07-18] MEDS: RESTASIS 0.05% OPHTHALMIC EMULSION 1 DROPS BOTH EYES (10:13)
[2024-07-18] MEDS: VITAMIN C 500 MG PO (10:14)
[2024-07-18] MEDS: TYLENOL 650 MG PO (10:14)
[2024-07-18] MEDS: PROSCAR 5 MG PO (10:21)
[2024-07-18] MEDS: AUGMENTIN 875 MG/125 MG 1 TABLET PO (10:21)
[2024-07-18] MEDS: THERAGRAN 1 TABLET PO (10:21)
[2024-07-18] MEDS: ZOLOFT 25 MG PO (10:21)
[2024-07-18] MEDS: FLOMAX 0.4 MG PO (10:21)
[2024-07-18 10:29] VITALS: BP 164/86
--- NOTE | 2024-07-18 12:51 | CON.MD ---
Consultation - Medical
-
dictated.
L posterior epistaxis from septal perf, ASA, plavix, heavy nose blowing, HTN.
I removed packing, cauterized multiple bleeding sites and placed gelfoam.
OK to dc to home.
hold ASA and/or plavix if possible.
avoid nose blowing, straining. elevate HOB. use copious saline, OK to restart Ponaris.
f/u if recurs.
does not need abx.
--- NOTE | 2024-07-18 15:46 | W.PN.HOSP.TC ---
Today's Communication/Plan
-
dc to home
Assessment / Plan
Assessment / Plan
Assessment:
Epistaxis, exacerbated by ASA/Plavix
- s/p packing in ER, s/p cautery and gel-foam by ENT
- avoid nose blowing, straining
- continue Ponaris gel (outpt)
- ENT f/u via phone (or ER) if needed
Essential HTN
- start Lisinopril 5mg
Hx of TIA
- on Plavix/ASA for CVA hx as well (>6 yrs ago)
- patient states he will hold x 1 week - routinely does this.
- PCP f/u in a few days to discuss fpc management of thinners
DVT ppx: SCDs
Code: Full
More than 30 minutes spent in discharge including
Final examination of the patient
Summarizing hospital stay
Instructions for continuing care to all relevant caregivers
Preparation of discharge records, prescriptions, and referral forms
Total time spent (in minutes): 41
Anticipated Discharge: Today
Subjective/Interval History
-
Date of Service: July 18, 2024
nosebleed resolved after packing removed, and cauterization from ENT
Objective Data
-
Labs:
Laboratory Results
07/18/24
04:43
WBC 6.7
Hgb 12.9 L
Hct 37.2 L
Plt Count 192
PT 13.5
INR 0.98
Vital Signs:
Vital Signs
Temp Pulse Resp BP Pulse Ox
98.0 F 88 19 164/86 96
07/18/24 15:30 07/18/24 03:22 07/18/24 03:22 07/18/24 10:29 07/18/24 10:29
I&O
07/17/24 07/18/24 07/19/24
06:59 06:59 06:59
Intake Total 120 / 120
Output Total 900 / 900
Balance -780 / -780
Physical Exam
-
General: No Apparent Distress
HEENT: Normocephalic and Atraumatic
Respiratory: Negative Wheezes
Cardiac: Regular Rhythm and S1/S2
GI: Soft and Nontender
Genito-urinary: No Costovertebral Tender
Neuro: AO x 3
Psych: Calm
Data Reviewed
-
Total Time Spent with Patient (in minutes): 41
Labs: Labs Reviewed by me
--- NOTE | 2024-07-18 15:54 | W.DS.TRANS ---
DC Summary - Registered Nurse Practitioner
-
Discharge Instructions:
Discharge Diagnosis/Procedures epistaxis
Diet Regular
Activity As tolerated
Instructions:
Stand-Alone Forms:
Changes to Home Medications: Yes
Discharge Medications:
DC Medications w/original date entered in [facility]
ascorbic acid (vitamin C) 500 mg tablet (Vitamin C) 500 mg PO DAILY Supplement 10/12/13
clonazepam 0.5 mg tablet 0.25 mg PO HS Sleep 10/12/13
clopidogrel 75 mg tablet 75 mg PO DAILY Blood Clot Prevention/Tx 10/12/13
finasteride 5 mg tablet 5 mg PO DAILY Urinary Issue 10/12/13
tamsulosin 0.4 mg capsule 0.4 mg PO DAILY Urinary Issue 10/12/13
aspirin 325 mg tablet 325 mg PO DAILY 04/28/19
atorvastatin 40 mg tablet (Lipitor) 40 mg PO HS #30 tabs 04/28/19
sertraline 25 mg tablet 25 mg PO DAILY Depression 10/20/23
cyclosporine 0.05 % eye drops in a dropperette 1 drp BOTH EYES BID dry eyes 10/24/23
bethanechol chloride 10 mg tablet 10 mg PO BID Urinary Issue 07/17/24
quetiapine 25 mg tablet (Seroquel) 25 mg PO HS Neurological Condition 07/17/24
therapeutic multivitamin 1 tab PO DAILY Supplement 07/17/24
lisinopril 5 mg tablet 5 mg PO DAILY #30 tabs 07/18/24
Home Medication Changes
blood thinner hold
Lisinopril
Pending Results: No
Total time spent discharging patient (in min): 41
== END 2024-07-18 16:26 | disposition home or self-care (01) ==
LOC: ED 23:36
PROVIDERS: Emergency Medicine; Nurse Practitioner Family; ADMITTING PHYSICIAN Internal Medicine; ATTENDING PHYSICIAN Internal Medicine; CONSULT PHYSICIAN Otolaryngology; EMERGENCY PHYSICIAN Student in an Organized Health Care Education/Training Program; FAMILY PHYSICIAN Family Medicine
DX: R04.0 Epistaxis (principal); T45.525A Adverse effect of antithrombotic drugs, initial encounter; T39.015A Adverse effect of aspirin, initial encounter; Y92.9 Unspecified place or not applicable; I10 Essential (primary) hypertension; I25.10 Atherosclerotic heart disease of native coronary artery without angina pectoris; N40.0 Benign prostatic hyperplasia without lower urinary tract symptoms; F42.9 Obsessive-compulsive disorder, unspecified; F41.9 Anxiety disorder, unspecified; Z79.82 Long term (current) use of aspirin; Z79.02 Long term (current) use of antithrombotics/antiplatelets; Z79.52 Long term (current) use of systemic steroids; Z86.73 Personal history of transient ischemic attack (TIA), and cerebral infarction without residual deficits
CPT/HCPCS: 30905; 80053; 85025; 85027; 85610; 99291; G0378

== ENCOUNTER 2024-09-09 12:55 | Emergency (ER) | payer MEDICARE, SELFPAY ==
[2024-09-09 12:59] VITALS: BP 159/86
[2024-09-09 13:27] LABS: % Basophils 0.8 % (0-2); % Eosinophils 2.9 % (0-6); % Monocytes 6.2 % (1.7-9.3); % Neutrophils 67.1 % (42.2-75.2); Absolute Eosinophils 0.2 10^3/uL (0-0.7); Absolute Lymphocytes 1.2 10^3/uL (1.2-3.4); Absolute Monocytes 0.3 10^3/uL (0.1-0.6); Absolute Neutrophils 3.5 10^3/uL (1.4-6.5); Hematocrit 37.4 % (39.0-52.0); Hemoglobin 13.1 g/dL (13.0-18.0); Mean Corpuscular Hgb 32.2 pg (27.0-31.0); Mean Corpuscular Volume 91.9 fL (80.0-94.0); Mean Platelet Volume 9.1 fL (7.4-10.4); Nucleated Red Blood Cells % 0 % (-); Platelet Count 186 10^3/uL (130-400); Red Blood Cell Count 4.07 10^6/uL (4.70-6.10); Red Cell Dist. Width 12.9 % (11.5-14.5); White Blood Cell Count 5.1 10^3/uL (4.8-10.8)
[2024-09-09 13:36] LABS: ALT (SGPT) 22 U/L (0-50); AST (SGOT) 24 U/L (17-59); Albumin 4.4 g/dl (3.5-5.0); Alkaline Phosphatase 70 U/L (38-126); Blood Urea Nitrogen 24 mg/dl (9-20); Carbon Dioxide 27 mmol/L (22-30); Chloride 98 mmol/L (98-107); Glucose 104 mg/dl (70-99); Potassium 4.4 mmol/L (3.5-5.1); Sodium 133 mmol/L (135-145); Total Bilirubin 0.9 mg/dl (0.2-1.3); Total Protein 6.8 g/dl (6.3-8.2); eGFR > 60.00
[2024-09-09 13:39] LABS: INR 0.91; PT 12.6 Sec (11.4-14.6)
[2024-09-09 13:40] LABS: APTT 25.4 Sec (23.4-35.0)
[2024-09-09 13:48] LABS: Troponin I 0.013 ng/ml
[2024-09-09 16:30] VITALS: BP 149/85
[2024-09-09 17:15] VITALS: BMI 24.8
[2024-09-09 18:00] VITALS: BP 138/74
--- NOTE | 2024-09-09 20:24 | ED.GENMED ---
History of Present Illness
General
Chief Complaint: Visual Problem
Source: patient
Exam Limitations: none
Time Seen by Provider: 09/09/24 16:15
History of Present Illness
History of Present Illness:
78-year-old male presents with intermittent partial vision loss out of the left eye. He has been having this for several years. He was on at 1 point aspirin and Plavix which fixed his symptoms however he developed a GI bleed. His aspirin and
Plavix were discontinued. Since then he has had some intermittent visual issues. He was seen by his carriage dogger today.
Past History
Past History
ED Past Medical History: HTN and Other (TIA, vertigo); Negative IDDM
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
Social History
Tobacco: Non-smoker
Alcohol: None
Drug: None
Personal: Other
Living: alone
Employment: Other
Family History
Family History: Negative Early CAD
Phy Exam
Physical Exam
Physical Exam:
General: Well-appearing male no acute respiratory distress
HEENT: Normocephalic atraumatic pupils equal round reactive to light extract motions are intact.
heart: Regular rate and rhythm no murmurs lungs: Clear no wheeze
Neurologic exam: Normal gait face is symmetric finger-nose intact [id number] intact. No dysarthria or aphasia
Course
Orders/Labs/Results
Orders:
Orders
09/09/24 13:06
Electrocardiogram (*1) Urgent
Reason for Study: Other
Other Reason for Exam: Possible Stroke
EKG- Treatment ONCE
09/09/24 13:14
Complete Blood Count/With Diff Urgent
Comprehensive Metabolic Panel Urgent
PTT Urgent
Prothrombin Time Urgent
Troponin I Urgent
09/09/24 15:30
CT Head & Neck Angio W/wo IV Urgent
Comment:
Reason For Exam: vision changes
09/09/24 18:36
Sodium Zirconium Cyclosilicate [Lokelma] 10 gram PO NOW STA
Abnormal Lab Results
09/09/24
13:14
RBC 4.07 L 10^6/uL
(4.70-6.10)
Hct 37.4 L %
(39.0-52.0)
MCH 32.2 H pg
(27.0-31.0)
Sodium 133 L mmol/L
(135-145)
BUN 24 H mg/dl
(9-20)
Glucose 104 H mg/dl
(70-99)
09/09/24 13:14
09/09/24 13:14
Vital Signs
Initial and Last Documented VS:
Initial Vital Signs
Temp Pulse Resp BP Pulse Ox
97.8 F 87 18 159/86 97
09/09/24 12:59 09/09/24 12:59 09/09/24 12:59 09/09/24 12:59 09/09/24 12:59
Last Documented Vital Signs
Temp Pulse Resp BP Pulse Ox
97.8 F 71 16 138/74 98
09/09/24 12:59 09/09/24 18:00 09/09/24 18:00 09/09/24 18:00 09/09/24 18:00
MDM/Problems Addressed
Differential Diagnosis Includes:
Patient sent in for carotid evaluation secondary to transient and partial vision loss out of the left eye. CT angio of the head and neck was ordered which is negative. Discussed with emergency room attending as well as neurology. Per neurology no
indication for any further testing given lack of symptoms currently he was advised to continue his aspirin daily. He has been taking his baby aspirin recently. Stable for discharge with follow-up
*Critical Care Note
Total Time (30-74mins, 75-104mins- exclusive of procedures): Not Applicable
ED Attending Note
-
Portions of this chart may have been created with voice recognition software.� Occasional wrong word or��sound alike� substitutions may have occurred due to the inherent limitations of voice recognition software.
Discharge Plan
Departure
Patient Disposition: Home (Routine Discharge)
Date of Disposition: 09/09/24
Time of Disposition: 20:28
Patient with high blood pressure during this ER visit?: No
Discharge Problem:
Change in vision
Instructions: Double Vision (DC)
Prescriptions:
No Action
clonazepam 0.5 MG tablet
0.25 mg PO HS
Patient Comments:
07/17/24: Patient states he fills in [place], cannot confirm with PDMP or [facility]. Patient is also unsure of exact mg dose.
clopidogrel 75 MG tablet
75 mg PO DAILY
ascorbic acid (vitamin C) [Vitamin C] 500 MG tablet
500 mg PO DAILY
tamsulosin 0.4 MG capsule
0.4 mg PO DAILY
finasteride 5 MG tablet
5 mg PO DAILY
aspirin 325 MG tablet
325 mg PO DAILY 0RF
Rx Instructions:
OTC meds
atorvastatin [Lipitor] 40 MG tablet
40 mg PO HS Qty: 30 0RF
sertraline 25 mg tablet
25 mg PO DAILY
cyclosporine 0.05 % dropperette
1 drp BOTH EYES BID
quetiapine [Seroquel] 25 mg Tablet
25 mg PO HS
bethanechol chloride 10 mg Tablet
10 mg PO BID
therapeutic multivitamin Tablet
1 tab PO DAILY
lisinopril 5 mg tablet
5 mg PO DAILY Qty: 30 0RF
Referrals:
Rufus Brown MD [Family Provider] -
Activity Restrictions/Additional Instructions:
Please return here for worsening symptoms otherwise follow-up with your doctor as planned. Continue take baby aspirin daily
Interventions
Interventions:
*Risk Screen - Suicide Last Done: 09/09/24 12:59
*General Assessment Last Done: 09/09/24 12:59
*Neglect/Abuse Screening Last Done: 09/09/24 12:59
*ED COVID-19 Vaccine History Last Done: 09/09/24 12:59
ED-EENT Assessment Last Done: 09/09/24 17:00
ED- Neurological Assessment Last Done: 09/09/24 17:00
ED Swallowing Screen Last Done: 09/09/24 17:00
Discharge Date and Time
Print Language: FRENCH
[2024-09-09 20:38] VITALS: BP 135/91
== END 2024-09-09 20:39 | disposition home or self-care (01) ==
LOC: EMR 12:55
PROVIDERS: Student in an Organized Health Care Education/Training Program; EMERGENCY PHYSICIAN Emergency Medicine; FAMILY PHYSICIAN Family Medicine
DX: H53.122 Transient visual loss, left eye (principal); I10 Essential (primary) hypertension; Z86.73 Personal history of transient ischemic attack (TIA), and cerebral infarction without residual deficits
CPT/HCPCS: 99284; 70496; 70498; 80053; 84484; 85025; 85610; 85730; 93005; Q9967

== ENCOUNTER → 2024-09-26 10:36 | Outpatient (REF) | payer MEDICARE, SELFPAY | LOC: RAD 10:36 | PROVIDERS: ATTENDING PHYSICIAN Physician Assistant | DX: R05.1 Acute cough (principal) | CPT/HCPCS: 71046 ==

== ENCOUNTER → 2025-01-30 10:38 | Outpatient (REF) | payer MEDICARE, SELFPAY | LOC: MRI 3T 10:38 | PROVIDERS: ATTENDING PHYSICIAN Family Medicine | DX: H53.122 Transient visual loss, left eye (principal) | CPT/HCPCS: 70544 ==